=== PATIENT | male | born 1975 | race Hispanic/Latino ===

== ENCOUNTER 2020-05-18 14:13 | Emergency (ER) | payer OTHER, SELFPAY ==
[2020-05-18 14:32] VITALS: O2SAT 98
[2020-05-18] MEDS ORDERED: SODIUM CHLORIDE 0.9% 1000ML 1,000 ML IVS ONE (14:33)
[2020-05-18] MEDS ORDERED: ONDANSETRON INJ 4 MG/2 ML VIAL IV ONE (14:33)
[2020-05-18] MEDS ORDERED: ACETAMINOPHEN 325 MG TAB PO ONE (14:34)
--- NOTE | 2020-05-18 14:38 | ED.PDOC ---
History of Present Illness - General Chief Complaint: General Stated Complaint: N/V, cough, fever, body aches Time Seen by Provider: 05/18/20 14:32 Additional Information: Patient is a 44-year-old male who presents to the ED with chief complaint of not feeling well. Patient complains of 5 days of muscle aches, generalized weakness, frequent dry cough, nausea, occasional shortness of breath, subjective fever, muscle aches and fatigue. Patient denies chest pain or vomiting. Patient is a non-smoker and indicates he does not have a history of any lung disease. He has never had a heart attack and does not have CAD but has been told he has had a fast heart rate in the past patient has no other complaints today. - History of Present Illness Allergies/Adverse Reactions: Allergies NO KNOWN ALLERGY Allergy (Verified 05/18/20 14:31) Home Medications: Ambulatory Orders Acetaminophen [Tylenol] 650 mg PO Q6H #50 tab 05/18/20 Albuterol Inhaler [Ventolin Hfa Inhaler] 2 puff INH Q4H PRN #1 inh 05/18/20 Review of Systems - Review of Systems Constitutional: States: fever, malaise, weakness EENTM: States: no symptoms reported Respiratory: States: cough, short of breath Cardiology: States: no symptoms reported. Denies: chest pain, palpitations Gastrointestinal/Abdominal: States: nausea. Denies: abdominal pain, vomiting Genitourinary: States: no symptoms reported. Denies: dysuria Musculoskeletal: States: muscle pain Skin: States: no symptoms reported. Denies: rash Neurological: States: no symptoms reported All other Systems: Reviewed and Negative Past Medical History (General) - Patient Medical History Hx Seizures: No Hx Stroke: No Hx Dementia: No Hx Asthma: No Hx of COPD: No Hx Cardiac Disorders: Yes - SVT Hx Congestive Heart Failure: No Hx Pacemaker: No Hx Hypertension: Yes Hx Thyroid Disease: No Hx Diabetes: No Hx Gastroesophageal Reflux: No Hx Renal Disease: No Hx Cancer: No Hx of HIV: No Hx Hepatitis C: No Hx MRSA: No Surgical History: no surgical history - Vaccination History Hx Tetanus, Diphtheria Vaccination: No Hx Influenza Vaccination: No Hx Pneumococcal Vaccination: No - Social History Hx Tobacco Use: Yes Hx Chewing Tobacco Use: No Hx Alcohol Use: Yes Hx Substance Use: No Hx Substance Use Treatment: No Hx Depression: No Hx Physical Abuse: No Hx Emotional Abuse: No Hx Suspected Abuse: No - Female History Patient is a Female of Child Bearing Age (10 -59 yrs old): No Patient : No Family Medical History - Family History Mother Family History: Unknown Living Status: Hx Family Cancer: Yes - unknown type Physical Exam - Physical Exam General Appearance: Alert, Comfortable, No apparent distress, Well Developed, Well Nourished ENT Exam: normal ENT inspection Neck: supple, normal inspection Respiratory: chest non-tender, lungs clear, normal breath sounds, no respiratory distress, no accessory muscle use, other - Occasional dry cough Cardiovascular/Chest: normal peripheral pulses, regular rate, rhythm, no edema, no gallop, no JVD Gastrointestinal/Abdominal: normal bowel sounds, non tender, soft, no organomegaly, no pulsatile mass Extremity: normal range of motion, non-tender, normal inspection, no pedal edema 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 His work-up today is unremarkable including his D-dimer and his chest x-ray is clear. Patient is Covid positive but his oxygen saturation levels are normal and he should do well recovering at home. Will DC with albuterol and Tylenol and patient to rest and follow-up with his PCP. I discussed with him quarantining for 14 days along with his who works at a prison. Vital signs stable, patient is NAD and looks clinically well and I believe is safe for discharge with outpatient follow-up. Follow-up instructions, discharge instructions and return to ED precautions discussed with patient. Patient voices understanding and willingness to comply with instructions. All laboratory and/or radiographic results have been discussed with the patient, and all questions answered. Patient is happy with plan. Departure - Departure Clinical Impression: COVID-19 Time of Disposition: 15:51 Disposition: Discharge to Home or Self Care Condition: Good Departure Forms: ED Discharge - Pt. Copy, Patient Portal Self Enrollment Instructions: Coronavirus Disease 2019 (COVID-19) (DC) Referrals: RONY RODRIGUEZ MD [Active Staff] - 1 Week Prescriptions: Acetaminophen [Tylenol] 650 mg PO Q6H #50 tab Albuterol Inhaler [Ventolin Hfa Inhaler] 2 puff INH Q4H PRN #1 inh PRN Reason: Shortness Of Breath/Wheezing Home Medications: Ambulatory Orders Acetaminophen [Tylenol] 650 mg PO Q6H #50 tab 05/18/20 Albuterol Inhaler [Ventolin Hfa Inhaler] 2 puff INH Q4H PRN #1 inh 05/18/20
--- NOTE | 2020-05-18 14:48 | RAD ---
EXAM: X-RAY, Chest (1 View) HISTORY: cough. COMPARISON: Chest x-ray from 07/31/2014. TECHNIQUE: AP view of the chest. FINDINGS: Lungs: The lungs are clear. Pleural space: No pneumothorax or pleural effusion is present. Heart: The heart is normal in size. Bones: No acute bone abnormality. IMPRESSION: No acute cardiopulmonary finding. Electronically signed by: Moe Kapadia MD 05/18/2020 2:46 PM [facility]
[2020-05-18 16:21] VITALS: BP 156/98; TEMP 98.3
== END 2020-05-18 16:15 | disposition home or self-care (01) ==
LOC: ER 14:13
DX: U07.1 COVID-19 (principal); I10 Essential (primary) hypertension; Z87.891 Personal history of nicotine dependence
CPT/HCPCS: 36415; 71045; 80053; 83605; 84484; 85025; 85379; 87040; 87635; 93005; J2405; J7030

== ENCOUNTER 2020-05-25 08:30 | Inpatient (IN) | payer OTHER, SELFPAY ==
--- NOTE | 2020-05-25 08:39 | ED.PDOC ---
History of Present Illness - General Time Seen by Provider: 05/25/20 08:36 Source: patient - History of Present Illness Initial Comments: 44-year-old male with PMH of hypertension, history of SVTs, previous smoker who presents with chief complaint of fevers and cough. Patient reports he has been sick now for about 10 days, was seen in the ED 1 week ago and diagnosed with COVID-19. He was discharged home at that time as he had normal oxygen saturatio n levels. Reports his symptoms worsened in the past few days. States T-max 103 Fahrenheit at home. Reports cough is frequent and severe and productive for colored sputum. Cough and dyspnea are worsened with activity/exertion. He has been trying Robitussin and albuterol breathing treatments at home with little relief. Additionally reports constant 5/10 severity pressure in the left center of his chest without radiation, much worse with coughing and palpation. Denies any history of ACS/CAD. Also reports nausea with intermittent vomiting as well as intermittent light green-colored diarrhea, occurring approximately twice per day. Reports also headache, body aches, decreased appetite, dark-colored urine. Reports he has a prior smoker for 30 years, quit 2 years ago. Allergies/Adverse Reactions: Allergies NO KNOWN ALLERGY Allergy (Verified 05/25/20 08:59) Home Medications: Ambulatory Orders Acetaminophen [Tylenol] 650 mg PO Q6H #50 tab 05/18/20 Albuterol Inhaler [Ventolin Hfa Inhaler] 2 puff INH Q4H PRN #1 inh 05/18/20 Promethazine Tab [Phenergan Tablet] 25 mg PO Q6H PRN #12 tab 05/18/20 Review of Systems - Review of Systems Review of Systems: 05/25/20 09:00 as per HPI All other Systems: Reviewed and Negative Past Medical History (General) - Patient Medical History Hx Seizures: No Hx Stroke: No Hx Dementia: No Hx Asthma: No Hx of COPD: No Hx Cardiac Disorders: Yes - SVT Hx Congestive Heart Failure: No Hx Pacemaker: No Hx Hypertension: Yes Hx Thyroid Disease: No Hx Diabetes: No Hx Gastroesophageal Reflux: No Hx Renal Disease: No Hx Cancer: No Hx of HIV: No Hx Hepatitis C: No Hx MRSA: No - Vaccination History Hx Tetanus, Diphtheria Vaccination: No Hx Influenza Vaccination: No Hx Pneumococcal Vaccination: No - Social History Hx Tobacco Use: Yes Hx Chewing Tobacco Use: No Hx Alcohol Use: Yes Hx Substance Use: No Hx Substance Use Treatment: No Hx Depression: No Hx Physical Abuse: No Hx Emotional Abuse: No Hx Suspected Abuse: No - Female History Patient : No Family Medical History - Family History Mother Family History: Unknown Living Status: Hx Family Cancer: Yes - unknown type Physical Exam - Physical Exam General Appearance: Alert, No apparent distress, Ill Appearing Eye Exam: bilateral normal Ears, Nose, Throat: hearing grossly normal, normal ENT inspection, normal pharynx Neck: non-tender, full range of motion, supple, normal inspection Respiratory: lungs clear, other - marked ttp to left-center chest wall, tachypnea, slight accessory muscle use, speaking in short sentences, moving air well throughout w/o wheezing/rales/rhonchi, frequent hacking cough Cardiovascular/Chest: normal peripheral pulses, regular rate, rhythm, no edema, no gallop, no JVD, no murmur Peripheral Pulses: radial,right: 2+, radial,left: 2+ Gastrointestinal/Abdominal: non tender, soft, no organomegaly Back Exam: normal inspection, no CVA tenderness, no vertebral tenderness Extremity: normal range of motion, non-tender, normal inspection, no pedal edema, no calf tenderness, normal capillary refill 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 Consider also other viral etiologies, bacterial PNA, ACS, PE, CHF, COPD, gastroenteritis, metabolic derangement, other -stat COVID-19 panel, [address] PIV, IV fluids, Decadron 6 mg IV, trial of Duonebs, codeine-guaifenesin cough syrup for severe hacking cough, anticipate admission 05/25/20 12:24 -Patient reexamined several times during ED visit. Currently he reports feeling slightly better with ED treatment. States his cough is much better with the codeine cough syrup. Breath sounds are slightly improved throughout with DuoNeb's treatment. His SPO2 is improved to 95% on 5 L via nasal cannula oxygen at the moment. Labs revealed D-dimer elevation so CTA chest was obtained which showed no evidence of PE but did reveal diffuse bilateral groundglass opacities consistent with COVID-19 pneumonia. Otherwise labs are consistent with COVID-19 infection. CRP is elevated to 34. WBC is 10,000 with slight left shift and no bandemia. -Discussed all the findings with the patient and his as well as need for admission for further care. They are in agreement. I discussed patient with Aleta Sawant who accepts the patient to her service. The patient was begun on Decadron 6 mg IV in the ED. Further treatment via hospitalist. Boaz Meade MD Billing #[id number] 05/25/20 08:38 EKG Assessment ONCE Oxygen Delivery Assessment: QSHIFT 05/25/20 08:45 EKG STAT Oxygen STAT Pulse Ox, Continuous Monitoring STAT 05/26/20 08:45 Oxygen STAT Pulse Ox, Continuous Monitoring STAT 05/27/20 08:45 Pulse Ox, Continuous Monitoring STAT Laboratory Results - last 24 hr 05/25/20 05/25/20 05/25/20 08:37 08:51 08:51 WBC 10.9 H RBC 4.67 L Hgb 13.4 L Hct 38.9 L MCV 83.4 MCH 28.6 MCHC 34.3 RDW 13.2 Plt Count 243 MPV 8.5 Absolute Neuts (auto) 8.70 H Absolute Lymphs (auto) 1.10 Absolute Monos (auto) 1.20 H Absolute Eos (auto) 0.00 Absolute Basos (auto) 0.00 Neutrophils % 79.3 H Lymphocytes % 9.8 L Monocytes % 10.7 H Eosinophils % 0.0 L Basophils % 0.2 PTT (SP) 29.1 D-Dimer, Quantitative 3650.0 H* Sodium Potassium Chloride Carbon Dioxide Anion Gap BUN Creatinine BUN/Creatinine Ratio Random Glucose Serum Osmolality Calcium Magnesium Total Bilirubin Direct Bilirubin Indirect Bilirubin AST ALT Alkaline Phosphatase LD Total Creatine Kinase Troponin I < 0.02 C-Reactive Protein B-Natriuretic Peptide Serum Total Protein Albumin Globulin Albumin/Globulin Ratio 05/25/20 05/25/20 08:51 10:11 WBC RBC Hgb Hct MCV MCH MCHC RDW Plt Count MPV Absolute Neuts (auto) Absolute Lymphs (auto) Absolute Monos (auto) Absolute Eos (auto) Absolute Basos (auto) Neutrophils % Lymphocytes % Monocytes % Eosinophils % Basophils % PTT (SP) D-Dimer, Quantitative Sodium 138 Potassium 4.0 Chloride 101 Carbon Dioxide 23 Anion Gap 18.0 BUN 16 Creatinine 0.95 BUN/Creatinine Ratio 16.8 Random Glucose 115 H Serum Osmolality 277.8 Calcium 8.3 L Magnesium 1.7 L Total Bilirubin 1.6 H 1.2 H D Direct Bilirubin 0.4 H Indirect Bilirubin 0.8 AST 35 ALT 54 Alkaline Phosphatase 99 LD Total 344 H Creatine Kinase 73 Troponin I C-Reactive Protein 34.1 H* B-Natriuretic Peptide 36.7 Serum Total Protein 8.6 H Albumin 2.9 L Globulin 5.7 H Albumin/Globulin Ratio 0.5 L - EKG/XRAY/CT EKG: Sinus, Tachy - HR 100, no ST elevs or q waves noted, axis normal, intervals normal, compared to 05/18/2020 EKG appears unchanged XRAY: chest - diffuse BL peripheral and R perihiral hazy/patchy infiltrates c/w COVID-19 per my read Departure - Departure Clinical Impression: COVID-19, Hypoxia Time of Disposition: 12:24 Disposition: Admit Patient Condition: Fair Diet: resume usual diet Home Medications: Ambulatory Orders Acetaminophen [Tylenol] 650 mg PO Q6H #50 tab 05/18/20 Albuterol Inhaler [Ventolin Hfa Inhaler] 2 puff INH Q4H PRN #1 inh 05/18/20 Promethazine Tab [Phenergan Tablet] 25 mg PO Q6H PRN #12 tab 05/18/20 Decision To Admit - Decistion To Admit Decision to Admit Reason: Admit from ER Decision to Admit Date: 05/25/20 Decision to Admit Time: 12:24
[2020-05-25] MEDS ORDERED: IPRATROPIUM/ALBUTEROL 3 ML VIAL NEB ONE (08:53)
[2020-05-25] MEDS ORDERED: DEXAMETHASONE INJ 4 MG/ML VIAL IV ONE (08:53)
[2020-05-25] MEDS ORDERED: guaiFENesin W/CODEINE LIQ 10 ML UD PO ONE (08:54)
[2020-05-25] MEDS ORDERED: SODIUM CHLORIDE 0.9% 500ML 500 ML IVS ONE (09:00)
[2020-05-25] MEDS ORDERED: ONDANSETRON INJ 4 MG/2 ML VIAL IV ONE (09:09)
--- NOTE | 2020-05-25 09:19 | RAD ---
EXAM: XR Chest, 1 View CLINICAL HISTORY: cough, dyspnea, COVID+ TECHNIQUE: Frontal view of the chest. COMPARISON: 05/18/2020 FINDINGS: Lungs: Multifocal bilateral groundglass and airspace consolidates identified throughout both lungs relatively sparing the upper lobes and most notable in the periphery. Pleural space: No pneumothorax. No pleural effusion. Heart: Normal cardiac size and configuration. Mediastinum: No abnormality noted. Bones/joints: No osseous destruction or sclerosis noted. IMPRESSION: Pulmonary infiltrates with imaging features typical of Covid pneumonia. Electronically signed by: Sanna Pearson MD 05/25/2020 9:17 AM [facility]
--- NOTE | 2020-05-25 11:26 | CT ---
EXAM: CTA chest with contrast CLINICAL INDICATION: COVID-19 , shortness of breath COMPARISON: CT scan from 12/28/2008. TECHNIQUE: CTA of the chest was performed using contiguous axial 2 mm postcontrast sections through the chest including IV contrast with 3-D reconstructions. This exam was performed according to our departmental dose-optimization program, which includes automated exposure control, adjustment of the mA and/or kV according to patient size and/or use of iterative reconstruction technique. FINDINGS: There is no evidence of pulmonary embolism. There are no findings to suggest aortic dissection. There are no enlarged mediastinal or hilar lymph nodes. The visualized portions of the upper abdominal structures are unremarkable. There are widespread infiltrates and groundglass opacities throughout both lungs especially peripherally consistent with pneumonia. There is no pneumothorax or pleural effusion. IMPRESSION: 1. Extensive infiltrates and groundglass opacities throughout both lungs typical for COVID-19 pneumonia. 2. No evidence of pulmonary embolism. Electronically signed by: Adria Anthony MD 05/25/2020 11:25 AM [employer]ALITY IMPROVEMENT COORDINATOR
--- NOTE | 2020-05-25 12:55 | HP ---
SUPERVISING PHYSICIAN: Lavon Bey MD CHIEF COMPLAINT: Shortness of breath. HISTORY OF PRESENT ILLNESS: This is a 44-year-old male patient who presented to the Emergency Room for complaints of shortness of breath with fever and cough. He had been sick for about 7 to 10 days. He was actually seen in the Emergency Room about a week ago and diagnosed with COVID. He had been discharged to home at that time. His O2 saturation at that time was normal. Over the last week or so, his symptoms worsened. He has had temperature up to 103. He has also had cough that has been productive. His shortness of breath has worsened and is worse with activity and exertion. He quit smoking about 2 years ago and about 10 years ago, used meth for some time, but he has not used any illicit drugs since that time. His initial vital signs showed a temperature of 98.7, heart rate 117, blood pressure 133/84, respiratory rate 24, O2 saturation 75%. After oxygen was placed on the patient, his O2 saturation went up to 90% with 4 liters. Lab studies were done. WBCs were 10,900, hemoglobin 13.4, hematocrit 38.9. He had a left shift on differential. D-dimer was elevated 3,650. Electrolytes were within normal limits with the exception of calcium slightly low at 8.3, magnesium low at 1.7. Bilirubin 1.6, LD 344, CRP 34.1. Followup bilirubin was 1.2 with direct bilirubin of 0.4, indirect bilirubin of 0.8. Chest x-ray showed pulmonary infiltrates with imaging features typical of COVID pneumonia. CT of the chest showed 1) Extensive infiltrates and ground glass opacities throughout both lung conteh, typical of COVID-19 pneumonia. 2) No evidence of pulmonary embolism. He was admitted to the hospital in stable condition. PAST MEDICAL HISTORY: 1. Supraventricular tachycardia. 2. Previous tobacco abuse. He quit approximately 2 years ago. 3. Hypertension, presently on no medications. PAST SURGICAL HISTORY: None. OUTPATIENT MEDICATIONS: None. ALLERGIES: NO KNOWN DRUG ALLERGIES. SOCIAL HISTORY: He lives in [place]. He is . He works at [employer]. He has a previous history of cigarette smoking although he quit about 2 years ago. He denies any ETOH use. He did use illicit drugs, but quit about 10 years ago. His drug of choice at that time was meth. REVIEW OF SYSTEMS: Negative except as per history of present illness. PHYSICAL EXAMINATION: VITAL SIGNS: Temperature 97.4, heart rate 78, blood pressure 131/73, respiratory rate 18, O2 saturation 89% on high flow nasal cannula. GENERAL: This is a 44-year-old male patient who is sitting up in his hospital bed. He is in moderate respiratory distress. HEENT: Normocephalic, atraumatic. Pupils are equal and reactive. Oropharynx is clear. NECK: Supple with full range of motion. RESPIRATORY: Scattered rhonchi throughout with a few expiratory wheezes. He is tachypneic at rest. He can only speak in 2 to 3 word phrases. CARDIOVASCULAR: Regular rate and rhythm. GASTROINTESTINAL: Abdomen is soft, nondistended, nontender. Bowel sounds are positive. EXTREMITIES: No cyanosis, clubbing or edema. NEUROLOGIC: Awake, alert and oriented times three. Cranial nerves II-XII are grossly intact as tested. LABORATORY: Labs and films are as per history of present illness. IMPRESSION: 1. Sepsis related to COVID-19 pneumonitis with concerns for developing pneumonia. His admitting heart rate was 117, respiratory rate 24, O2 saturation 75%, and WBCs were 10,900. 2. History of supraventricular tachycardia. 3. History of tobacco abuse, quit smoking cigarettes 2 years ago. 4. Remote history of illicit drug use, mainly methamphetamines. PLAN: The patient has been admitted to the hospital. He will be placed on the COVID-19 guidelines including medications and testing. He will have aggressive pulmonary hygiene including albuterol breathing treatments both p.r.n. and scheduled. I have ordered lab and x-rays for in the morning. We will follow and treat as needed. [facility][id number] [facility]
[2020-05-25] MEDS ORDERED: SODIUM CHLORIDE 0.9% (FLUSH) 10 ML SYG IV PRN (16:02)
[2020-05-25] MEDS ORDERED: ONDANSETRON INJ 4 MG/2 ML VIAL IV PRN (16:02)
[2020-05-25] MEDS ORDERED: ALBUTEROL INHALER 64 PUFF/8GM INH ONE (16:06)
[2020-05-25] MEDS ORDERED: ALBUTEROL INHALER 64 PUFF/8GM INH PRN (16:07)
[2020-05-25] MEDS ORDERED: MAGNESIUM SULFATE PREMIX 2GM 2 GM in PREMIX BAG 1 BAG IVPB ONE (16:34)
[2020-05-25] MEDS ORDERED: AZITHROMYCIN IV 500 MG VIAL IVPB ONE (16:35)
[2020-05-25] MEDS ORDERED: cefTRIAXone SODIUM 1 GM VIAL ONE (16:36)
[2020-05-25] MEDS ORDERED: SODIUM CHL 0.9% 50ML MIN-BAG+ 50 ML IVPB ONE (16:36)
[2020-05-25] MEDS ORDERED: SODIUM CHLORIDE 0.9% 250ML 250 ML ONE (16:36)
[2020-05-25] MEDS: cefTRIAXone SODIUM 1 GM in SODIUM CHL 0.9% 50ML MIN-BAG+ 50 ML IVPB SCH (16:54)
[2020-05-25] MEDS: guaiFENesin W/CODEINE LIQ 10 ML UD PO PRN ×2 (16:56→21:30)
[2020-05-25] MEDS: IV SET AND CAP CHANGE INJ INJ SCH (17:07)
[2020-05-25] MEDS ORDERED: REMDESIVIR 200 MG in SODIUM CHLORIDE 0.9% 250ML 250 ML IVPB ONE ×2 (17:46→20:00)
[2020-05-25] MEDS ORDERED: AZITHROMYCIN IV 500 MG in SODIUM CHLORIDE 0.9% 250ML 250 ML IVPB SCH (18:00)
[2020-05-25] MEDS ORDERED: MAGNESIUM SULFATE PREMIX 2GM 50 ML IVPB ONE (19:02)
[2020-05-25] MEDS ORDERED: ALBUTEROL SULFATE 2.5 MG/3 ML VIAL NEB ONE (19:56)
[2020-05-25] MEDS: ALBUTEROL INHALER 64 PUFF/8GM INH SCH (20:15)
[2020-05-25] MEDS: AZITHROMYCIN IV 500 MG in SODIUM CHLORIDE 0.9% 250ML 250 ML IVPB SCH (20:30)
[2020-05-25] MEDS: guaiFENesin ER TAB 600 MG TAB PO SCH (21:30)
[2020-05-25] MEDS: BIFIDOBACTERIUM INFANTIS 4 MG CAP PO SCH (21:30)
[2020-05-25] MEDS: SODIUM CHLORIDE 0.9% (FLUSH) 10 ML SYG IV SCH (21:30)
[2020-05-25] MEDS: ENOXAPARIN SODIUM 40 MG/0.4 ML SYG SUBCU SCH (21:30)
[2020-05-26] MEDS: guaiFENesin W/CODEINE LIQ 10 ML UD PO PRN ×3 (04:56→17:48)
[2020-05-26] MEDS ORDERED: PANTOPRAZOLE SODIUM IV 40 MG VIAL IV SCH (06:30)
[2020-05-26] MEDS: ALBUTEROL INHALER 64 PUFF/8GM INH SCH ×4 (08:00→20:49)
[2020-05-26] MEDS ORDERED: REMDESIVIR IV 100 MG VIAL ONE (08:15)
[2020-05-26] MEDS ORDERED: SODIUM CHLORIDE 0.9% 250ML 250 ML ONE (08:15)
[2020-05-26] MEDS ORDERED: guaiFENesin W/CODEINE LIQ 10 ML UD PO ONE (09:04)
[2020-05-26] MEDS: guaiFENesin ER TAB 600 MG TAB PO SCH ×2 (09:14→20:28)
[2020-05-26] MEDS: BIFIDOBACTERIUM INFANTIS 4 MG CAP PO SCH ×2 (09:14→20:28)
[2020-05-26] MEDS: REMDESIVIR 100 MG in SODIUM CHLORIDE 0.9% 250ML 250 ML IVPB SCH (09:14)
[2020-05-26] MEDS: DEXAMETHASONE INJ 10 MG/ML VIAL IV SCH (09:15)
[2020-05-26] MEDS: SODIUM CHLORIDE 0.9% (FLUSH) 10 ML SYG IV SCH ×2 (09:15→20:28)
--- NOTE | 2020-05-26 13:58 | PN ---
SUPERVISING PHYSICIAN: Alf Terry MD DATE: 05/26/20 SUBJECTIVE: The patient states he is breathing fairly well, but he is requiring NIV at the moment. He is quite tachypneic upon my arrival into the room and on 100% oxygen on the BiPAP. I discussed with him intubation and he agreed that he understood that may be necessary, however, at this point I have turned down his oxygen to 80% and he is tolerating it fairly well so far. He denies any nausea or vomiting. OBJECTIVE: VITAL SIGNS: Blood pressure 133/86, heart rate 70, respiratory rate 24, temperature 96.9, oxygen saturation 99% on noninvasive ventilation at 80%. GENERAL: Mr. Pimentel is a 44-year-old male patient who is critically ill on noninvasive ventilation. NEUROLOGIC: The patient is alert. LUNGS: Clear to auscultation bilaterally, but diminished. CARDIOVASCULAR: Regular rate and rhythm. Normal S1, S2. ABDOMEN: Soft. Positive bowel sounds. GENITOURINARY: Deferred. EXTREMITIES: Lower extremities with no edema. Pulses 2+. Capillary refill is less than 2 seconds. LABORATORY: White count 17.2, hemoglobin 12.5, hematocrit 37.3, platelet count 284. D-dimer 3,080 which is an improvement over the D-dimer yesterday which was 3650. Chemistry today is pretty much unremarkable. There has been an improvement in the CRP to 29.0 from 34.1. ASSESSMENT: 1. Acute hypoxemic respiratory failure. 2. COVID pneumonitis. 3. History of smoking, but quit 2 years ago. PLAN: We will continue noninvasive ventilation and wean FiO2 as tolerated. Once again, I did discuss intubation with him and he is still quite a high risk. If his oxygen demands go up and he becomes tachypneic despite our best efforts, we will intubate and transfer him out. We will continue the Remdesivir, steroids and empiric antibiotics as well as bronchodilators and pulmonary toileting. Critical care time spent in evaluation and management of the patient, coordination of care with respiratory and nursing staff, chart review, order caller as well as documentation was 35 minutes. #[id number] [facility]
[2020-05-26] MEDS: cefTRIAXone SODIUM 1 GM in SODIUM CHL 0.9% 50ML MIN-BAG+ 50 ML IVPB SCH (17:00)
[2020-05-26] MEDS: AZITHROMYCIN IV 500 MG in SODIUM CHLORIDE 0.9% 250ML 250 ML IVPB SCH (20:27)
[2020-05-26] MEDS: ENOXAPARIN SODIUM 40 MG/0.4 ML SYG SUBCU SCH (20:28)
[2020-05-27] MEDS: guaiFENesin W/CODEINE LIQ 10 ML UD PO PRN ×3 (02:17→20:23)
[2020-05-27] MEDS: ACETAMINOPHEN 325 MG TAB PO PRN ×2 (03:11→12:45)
[2020-05-27] MEDS: ALPRAZolam 0.5 MG TAB PO PRN ×3 (03:15→20:23)
[2020-05-27] MEDS ORDERED: PANTOPRAZOLE SODIUM TAB 40 MG PO ONE (05:10)
[2020-05-27] MEDS: PANTOPRAZOLE SODIUM TAB 40 MG PO SCH (06:14)
--- NOTE | 2020-05-27 07:15 | RAD ---
EXAM: Chest Radiography COMPARISON: Chest radiograph May 25, 2020 INDICATION: covid FINDINGS: A single AP view of the chest demonstrates an enlarged cardiomediastinal silhouette. No pneumothorax or significant pleural effusion. Stable diffuse bilateral subpleural predominant consolidations. Osseous structures are intact. IMPRESSION: Stable chest. Electronically signed by: Francis Tejada MD 05/27/2020 7:13 AM RESEARCH COMPUTING SPECIALIST
[2020-05-27] MEDS: ALBUTEROL INHALER 64 PUFF/8GM INH SCH ×4 (08:52→21:00)
[2020-05-27] MEDS: REMDESIVIR 100 MG in SODIUM CHLORIDE 0.9% 250ML 250 ML IVPB SCH (09:21)
[2020-05-27] MEDS: BIFIDOBACTERIUM INFANTIS 4 MG CAP PO SCH ×2 (09:22→20:23)
[2020-05-27] MEDS: DEXAMETHASONE INJ 10 MG/ML VIAL IV SCH (09:22)
[2020-05-27] MEDS: guaiFENesin ER TAB 600 MG TAB PO SCH ×2 (09:22→20:23)
[2020-05-27] MEDS: SODIUM CHLORIDE 0.9% (FLUSH) 10 ML SYG IV SCH ×2 (09:23→20:23)
--- NOTE | 2020-05-27 15:08 | PN ---
SUPERVISING PHYSICIAN: Alf Terry MD DATE: 05/27/20 SUBJECTIVE: The patient states he does not feel a whole lot different than he did yesterday. He is still having intermittent shortness of breath. He is still requiring the BiPAP. He says he does not feel any worse and does not feel any better. OBJECTIVE: VITAL SIGNS: Blood pressure 134/84, heart rate 68, respiratory rate 25 to 30 while I am at the bedside, temperature 96.0, oxygen saturation around 96%. GENERAL: Mr. Pimentel is a 44-year-old male patient who is in mild to moderate respiratory distress. NEUROLOGIC: The patient is alert. LUNGS: Coarse bilaterally. CARDIOVASCULAR: Regular rate and rhythm. Normal S1, S2. ABDOMEN: Soft. Positive bowel sounds. GENITOURINARY: Deferred. EXTREMITIES: Lower extremities with no edema. LABORATORY: White count elevated at 21.8, 3% bands. D-dimer greater than 5,000. CRP a little bit better at 15.5. RADIOLOGY: Chest x-ray does not show any significant change from yesterday. ASSESSMENT: 1. Acute hypoxemic respiratory failure. 2. COVID pneumonitis. 3. History of smoking. PLAN: We will continue noninvasive ventilation and wean FiO2 as tolerated. I did speak with him regarding intubation once again and told him if his respiratory rate climbs and his oxygenation status worsens, he will need to be intubated. He verbalized understanding, but we are not at that point right now. He does have elevated white count with bands, so I am going to escalate his antibiotic therapy. Additionally, his D-dimer has gone back up, so I am going to put him on full anticoagulation at this point. We will continue Remdesivir, steroids, bronchodilators and pulmonary toileting. #[id number] [facility]
[2020-05-27] MEDS ORDERED: MEROPENEM 1 GM VIAL IVPB ONE (15:27)
[2020-05-27] MEDS ORDERED: SODIUM CHL 0.9% 50ML MIN-BAG+ 0 ML IVPB ONE (15:28)
[2020-05-27] MEDS: MEROPENEM 1 GM in SODIUM CHL 0.9% 50ML MIN-BAG+ 50 ML IVPB SCH ×2 (15:31→22:49)
[2020-05-27] MEDS: AZITHROMYCIN IV 500 MG in SODIUM CHLORIDE 0.9% 250ML 250 ML IVPB SCH (20:22)
[2020-05-27] MEDS: APIXABAN 5 MG TAB PO SCH (20:23)
[2020-05-27] MEDS: HYDROcodone 5MG/APAP 325MG 1 EA TAB PO PRN (20:42)
[2020-05-28] MEDS: HYDROcodone 5MG/APAP 325MG 1 EA TAB PO PRN ×2 (03:38→08:34)
[2020-05-28] MEDS: ALPRAZolam 0.5 MG TAB PO PRN ×5 (03:38→22:36)
[2020-05-28] MEDS: guaiFENesin W/CODEINE LIQ 10 ML UD PO PRN ×5 (03:38→22:36)
[2020-05-28] MEDS: PANTOPRAZOLE SODIUM TAB 40 MG PO SCH (06:04)
--- NOTE | 2020-05-28 07:14 | RAD ---
EXAM: XR Chest, 1 View CLINICAL HISTORY: The patient is 44 years old and is Male; covid, resp failure TECHNIQUE: Single upright portable view of the chest. COMPARISON: May 27, 2020. FINDINGS: Lungs: Bilateral pulmonary opacities again noted, not significantly changed. Pleural space: Unremarkable. No pneumothorax. Heart: The cardiac silhouette is enlarged versus artifact of AP technique. Cardiomediastinal silhouette is not significantly changed given the differences in technique. Mediastinum: See above. Bones/joints: The bones and joints are unchanged as visualized. Upper abdomen: No free air in the visualized upper abdomen. IMPRESSION: Bilateral pulmonary opacities again noted, not significantly changed. Electronically signed by: Azeb Mcmanus MD 05/28/2020 7:12 AM DIGITAL DIRECTOR
[2020-05-28] MEDS: MEROPENEM 1 GM in SODIUM CHL 0.9% 50ML MIN-BAG+ 50 ML IVPB SCH ×3 (07:30→23:06)
[2020-05-28] MEDS: DEXAMETHASONE INJ 10 MG/ML VIAL IV SCH (08:33)
[2020-05-28] MEDS: REMDESIVIR 100 MG in SODIUM CHLORIDE 0.9% 250ML 250 ML IVPB SCH (08:33)
[2020-05-28] MEDS: BIFIDOBACTERIUM INFANTIS 4 MG CAP PO SCH ×2 (08:33→20:34)
[2020-05-28] MEDS: guaiFENesin ER TAB 600 MG TAB PO SCH ×2 (08:33→20:34)
[2020-05-28] MEDS: SODIUM CHLORIDE 0.9% (FLUSH) 10 ML SYG IV SCH ×2 (08:34→20:35)
[2020-05-28] MEDS: APIXABAN 5 MG TAB PO SCH ×2 (08:34→20:34)
[2020-05-28] MEDS: ALBUTEROL INHALER 64 PUFF/8GM INH SCH ×4 (09:00→19:24)
[2020-05-28] MEDS: HYDROcodone 7.5MG/APAP 325MG 1 EA TAB PO PRN ×3 (12:51→22:36)
[2020-05-28] MEDS: IV SET AND CAP CHANGE INJ INJ SCH (16:46)
[2020-05-28] MEDS: IBUPROFEN 400 MG TAB PO PRN (16:54)
[2020-05-28] MEDS: AZITHROMYCIN IV 500 MG in SODIUM CHLORIDE 0.9% 250ML 250 ML IVPB SCH (20:35)
--- NOTE | 2020-05-28 20:39 | PN ---
SUPERVISING PHYSICIAN: Alf Terry M.D. DATE: 05/28/20 SUBJECTIVE: The patient is sitting up in bed. He is still on the BiPAP. It is reported that he has used the nonrebreather at rest. He still is very short of breath but denies chest pain, nausea or vomiting. OBJECTIVE: VITAL SIGNS: Temperature 96.7, heart rate 70, blood pressure 144/86, respiratory rate 20, O2 saturation 95% on BiPAP at 60%. RESPIRATORY: Diminished throughout. CARDIAC: Regular rate and rhythm. NEUROLOGIC: He is awake, alert and oriented times three. LABORATORY: WBCs are 18,900 with hemoglobin 13.4, hematocrit 40.6. He has a left shift on his differential. D-dimer 4,370. Sodium is slightly low at 131 with potassium 4.6, chloride 97, calcium 7.7, magnesium 2.1. ALT 73, C reactive protein 10.5. Chest x-ray shows bilateral pulmonary opacities again noted not significantly changed. All other labs and films have been reviewed via the EMR. ASSESSMENT: 1. Acute hypoxemic respiratory failure. 2. COVID pneumonitis. 3. History of smoking. PLAN: We will continue present supportive care, including noninvasive ventilation and wean FiO2 as tolerated. Will continue on the COVID guidelines, including Remdesivir, broad spectrum antibiotics, Decadron, Lovenox and aggressive pulmonary hygiene, including his bronchodilators. I have ordered routine lab and films for in the morning. Will monitor the patient and treat as needed. #[id number] [facility]TDD
[2020-05-29] MEDS: PANTOPRAZOLE SODIUM TAB 40 MG PO SCH (06:02)
--- NOTE | 2020-05-29 07:23 | RAD ---
PROCEDURE:XR CHEST 1 VIEW HISTORY:covid COMPARISON: There are 2020 FINDINGS: The heart appears unremarkable. There are stable patchy infiltrates. There are no new infiltrates. There is no evidence for effusion or pneumothorax. There are no acute bony or soft tissue abnormalities. IMPRESSION: No acute cardiopulmonary process. Electronically signed by: Omari Farr MD 05/29/2020 7:22 AM SHIATSU THERAPIST
[2020-05-29] MEDS: MEROPENEM 1 GM in SODIUM CHL 0.9% 50ML MIN-BAG+ 50 ML IVPB SCH ×3 (07:37→23:22)
[2020-05-29] MEDS: DEXAMETHASONE INJ 10 MG/ML VIAL IV SCH (08:27)
[2020-05-29] MEDS: REMDESIVIR 100 MG in SODIUM CHLORIDE 0.9% 250ML 250 ML IVPB SCH (08:27)
[2020-05-29] MEDS: IBUPROFEN 400 MG TAB PO PRN ×2 (08:27→20:30)
[2020-05-29] MEDS: SODIUM CHLORIDE 0.9% (FLUSH) 10 ML SYG IV SCH ×2 (08:28→20:31)
[2020-05-29] MEDS: APIXABAN 5 MG TAB PO SCH ×2 (08:28→20:16)
[2020-05-29] MEDS: guaiFENesin ER TAB 600 MG TAB PO SCH ×2 (08:28→20:16)
[2020-05-29] MEDS: BIFIDOBACTERIUM INFANTIS 4 MG CAP PO SCH ×2 (08:28→20:16)
[2020-05-29] MEDS: ALBUTEROL INHALER 64 PUFF/8GM INH SCH ×4 (08:47→21:08)
--- NOTE | 2020-05-29 13:39 | PN ---
SUPERVISING PHYSICIAN: Alf Terry M.D. DATE: 05/29/20 SUBJECTIVE: The patient is sitting up in his chair in his room. He has his BiPAP on. He does get short of breath with any exertion, but seems to be tolerating it without problem. He denies chest pain, nausea or vomiting. OBJECTIVE: VITAL SIGNS: Temperature 98.2, heart rate 66, blood pressure 128/71, O2 saturation 96% on BiPAP at 55%. RESPIRATORY: Diminished throughout. CARDIAC: Regular rate and rhythm. NEUROLOGIC: He is awake, alert and oriented times three. LABORATORY: WBCs 19,000, hemoglobin 13.1, hematocrit 39.6. He has a left shift on differential. D-dimer is greater than 5,000. Blood gas from last night shows pCO2 43, pO2 93, bicarb 26.1, O2 saturation 94.9%, pH 7.38. Electrolytes show sodium 133, potassium 4.6, chloride 99, calcium 7.8, magnesium 2.5, BUN 17, creatinine 0.67. LD 332, creatinine kinase 19, C-reactive protein 15.1. RADIOLOGY: Chest x-ray shows no acute cardiopulmonary processes with no new infiltrates and stable patchy infiltrates. ASSESSMENT: 1. Acute hypoxemic respiratory failure. 2. COVID pneumonitis. 3. History of smoking. PLAN: We will continue present supportive care, including the COVID guidelines. We will continue with the medications of Remdesivir, Decadron, azithromycin and Rocephin. He will also continue on his Eliquis as he is fully anticoagulated. Routine COVID labs will be ordered for tomorrow. We will hold on a chest x-ray for now. We will try to wean him off his oxygen as tolerated. He will have aggressive pulmonary hygiene. We will monitor and treat as needed. #[id number] [facility]TDD
[2020-05-29] MEDS: HYDROcodone 7.5MG/APAP 325MG 1 EA TAB PO PRN ×2 (15:32→20:16)
[2020-05-29] MEDS: AZITHROMYCIN IV 500 MG in SODIUM CHLORIDE 0.9% 250ML 250 ML IVPB SCH (20:14)
[2020-05-29] MEDS: ALPRAZolam 0.5 MG TAB PO PRN (20:17)
[2020-05-30] MEDS: guaiFENesin W/CODEINE LIQ 10 ML UD PO PRN ×2 (03:45→15:50)
[2020-05-30] MEDS: PANTOPRAZOLE SODIUM TAB 40 MG PO SCH (06:09)
[2020-05-30] MEDS: IBUPROFEN 400 MG TAB PO PRN (08:28)
[2020-05-30] MEDS: guaiFENesin ER TAB 600 MG TAB PO SCH ×2 (08:28→20:27)
[2020-05-30] MEDS: ALPRAZolam 0.5 MG TAB PO PRN ×2 (08:28→20:27)
[2020-05-30] MEDS: APIXABAN 5 MG TAB PO SCH ×2 (08:28→20:27)
[2020-05-30] MEDS: DEXAMETHASONE INJ 10 MG/ML VIAL IV SCH (08:28)
[2020-05-30] MEDS: MEROPENEM 1 GM in SODIUM CHL 0.9% 50ML MIN-BAG+ 50 ML IVPB SCH ×3 (08:29→23:25)
[2020-05-30] MEDS: ALBUTEROL INHALER 64 PUFF/8GM INH SCH ×4 (08:35→20:30)
[2020-05-30] MEDS ORDERED: MAGNESIUM SULFATE PREMIX 2GM 2 GM in PREMIX BAG 1 BAG IVPB ONE (08:43)
[2020-05-30] MEDS: BIFIDOBACTERIUM INFANTIS 4 MG CAP PO SCH ×2 (09:35→20:28)
[2020-05-30] MEDS: SODIUM CHLORIDE 0.9% (FLUSH) 10 ML SYG IV SCH ×2 (09:35→20:28)
--- NOTE | 2020-05-30 14:44 | PN ---
SUPERVISING PHYSICIAN: Alf Terry M.D. DATE: 05/30/20 SUBJECTIVE: The patient is sitting up in his bed. He is now on high flow oxygen. He still gets quite short of breath with any exertion and he does get somewhat anxious at night when he has a difficult time breathing. Otherwise, no chest pain, nausea or vomiting. OBJECTIVE: VITAL SIGNS: Temperature 97.5, heart rate 72, blood pressure 131/78, respiratory rate 21, O2 saturation 94% on BiPAP at 40%. He does take breaks and is 94% on high flow nasal canula. RESPIRATORY: Diminished breath sounds throughout. He is tachypneic and has to speak in short phrases. CARDIAC: Regular rate and rhythm. NEUROLOGIC: He is awake, alert and oriented times three. LABORATORY: WBCs 19,300, hemoglobin 12.5, hematocrit 37.9. He has a left shift on differential. D-dimer continues at greater than 5,000. Sodium 133, potassium 4.4, chloride 102, BUN 19, creatinine 0.69, calcium 8.1, magnesium 1.7. ALT 76, LD 294, creatinine kinase 16, troponin less than 0.02, C-reactive protein 10. All other labs and films have been reviewed via the EMR. ASSESSMENT: 1. Acute hypoxemic respiratory failure. 2. COVID pneumonitis. 3. History of smoking. 4. Anxiety, most likely secondary to #1 and #2. PLAN: We will continue present supportive care, including the COVID protocol. His antibiotics will be continued as previously. His labs will be monitored closely. We will titrate his oxygen as he tolerates. I have given him some magnesium replacement. We will continue to monitor and treat as needed. [facility][id number] [facility]
[2020-05-30] MEDS: AZITHROMYCIN IV 500 MG in SODIUM CHLORIDE 0.9% 250ML 250 ML IVPB SCH (20:25)
[2020-05-30] MEDS: HYDROcodone 7.5MG/APAP 325MG 1 EA TAB PO PRN (20:27)
[2020-05-31] MEDS: IBUPROFEN 400 MG TAB PO PRN ×2 (01:57→19:27)
[2020-05-31] MEDS: PANTOPRAZOLE SODIUM TAB 40 MG PO SCH (06:13)
[2020-05-31] MEDS: MEROPENEM 1 GM in SODIUM CHL 0.9% 50ML MIN-BAG+ 50 ML IVPB SCH ×3 (07:41→23:23)
[2020-05-31] MEDS: DEXAMETHASONE INJ 10 MG/ML VIAL IV SCH (08:53)
[2020-05-31] MEDS: APIXABAN 5 MG TAB PO SCH ×2 (08:53→20:30)
[2020-05-31] MEDS: guaiFENesin ER TAB 600 MG TAB PO SCH ×2 (08:53→20:30)
[2020-05-31] MEDS: BIFIDOBACTERIUM INFANTIS 4 MG CAP PO SCH ×2 (08:54→20:30)
[2020-05-31] MEDS: SODIUM CHLORIDE 0.9% (FLUSH) 10 ML SYG IV SCH ×2 (08:54→20:30)
[2020-05-31] MEDS: ALBUTEROL INHALER 64 PUFF/8GM INH SCH ×4 (10:38→20:45)
--- NOTE | 2020-05-31 10:59 | RAD ---
TECHNIQUE: Chest,1 View Chest radiograph, AP view. HISTORY: MAIN covid COMPARISON: Chest x-ray May 29, 2020. FINDINGS: Lungs/Pleura: Patchy infiltrates and consolidations in both lungs appear more notable on the left. Overall appearance is unchanged compared to the prior. No pneumothorax. No blunting of costophrenic angles are evident to suggest effusions. Hypoaerated lungs accentuate the pulmonary markings and cardiac silhouette. Mediastinum, [place]: Aortic calcifications. Heart: Cardiac silhouette is stable compared to prior. Bones: No suspicious osseous lesions. Soft Tissues: Unremarkable. Other: None. IMPRESSION: * Stable exam. Electronically signed by: Jorge Guajardo 05/31/2020 10:57 AM [facility]
[2020-05-31] MEDS ORDERED: MORPHINE SULFATE INJ 10 MG/ML VIAL IV ONE (13:15)
[2020-05-31] MEDS: ALPRAZolam 0.5 MG TAB PO PRN ×2 (13:23→20:30)
[2020-05-31] MEDS: IV SET AND CAP CHANGE INJ INJ SCH (17:31)
[2020-05-31] MEDS: AZITHROMYCIN IV 500 MG in SODIUM CHLORIDE 0.9% 250ML 250 ML IVPB SCH (20:29)
[2020-05-31] MEDS: HYDROcodone 7.5MG/APAP 325MG 1 EA TAB PO PRN (20:30)
--- NOTE | 2020-05-31 21:39 | PN ---
SUPERVISING PHYSICIAN: Alf Terry M.D. DATE: 05/31/20 SUBJECTIVE: The patient seems to be doing okay on BiPAP. He has actually been able to come off on high flow but gets hypoxic fairly easily. He is quite anxious and requiring some management with Xanax and some morphine, but seems to be tolerating his BiPAP well. OBJECTIVE: VITAL SIGNS: Temperature 98, pulse 75, blood pressure 118/73, respirations 20. He is showing 95% on high flow nasal cannula and on BiPAP at 40%. He is showing 94%, that is with settings of 12/6 at current assessment. CHEST: Lung sounds are just diminished throughout. I do not hear any obvious rhonchi, wheezing or rales. HEART: Regular rate and rhythm. ABDOMEN: Obese but soft, non-tender. Positive bowel sounds. EXTREMITIES: Without edema. NEUROLOGIC: He is alert and oriented times three. LABORATORY: White count is holding fairly stable at 19,500, hemoglobin 12.7, hematocrit 38.5, platelet count 246,000. Differential does show a left shift, but no current bands. Coagulation studies show a persistent elevated D-dimer at greater than 5,000. Chemistries are showing sodium 132, potassium 4.8, BUN 19, creatinine 0.85, normal magnesium at 2.0. Liver functions are within normal limits except for a slightly elevated ALT at 74. Troponin is less than 0.02. MICROBIOLOGY: No new specimens. RADIOLOGY: Chest x-ray this morning per radiology interpretation just shows again patchy infiltrates and consolidations in both lungs that appear to be fairly stable. It is more prominent on the left than the right. ASSESSMENT: 1. COVID pneumonitis. 2. Acute hypoxic respiratory failure secondary to #1 with developing likely viral pneumonia. 3. History of tobacco abuse in a smoker. 4. Anxiety, likely due to #1. PLAN: Will continue current plan of care with COVID protocol. I discussed with respiratory therapist. Will increase his settings on his BiPAP to be 12/8 with increasing his EPAP to 8 versus 6 to see if we can to create some more airspace. Will continue to titrate his oxygen down, hopefully this will help improve some. Will replace magnesium as needed. He continues on DVT prophylaxis with Eliquis. He is on antibiotics, including Meropenem and azithromycin. He does remain on Decadron and Protonix. Will continue to try to titrate his oxygen needs down as he remains on 40% FiO2 at this point, but he has actually been tolerating some high flow nasal cannula. Hopefully this will continue and we can transition him off BiPAP for the next 1 to 2 days. Until then will continue to monitor and treat as needed. #[id number] [facility]
[2020-06-01] MEDS: PANTOPRAZOLE SODIUM TAB 40 MG PO SCH (06:02)
[2020-06-01] MEDS: ALBUTEROL INHALER 64 PUFF/8GM INH SCH ×4 (08:42→19:48)
[2020-06-01] MEDS: SODIUM CHLORIDE 0.9% (FLUSH) 10 ML SYG IV SCH ×2 (09:33→20:37)
[2020-06-01] MEDS: APIXABAN 5 MG TAB PO SCH ×2 (09:33→20:37)
[2020-06-01] MEDS: DEXAMETHASONE INJ 10 MG/ML VIAL IV SCH (09:33)
[2020-06-01] MEDS: guaiFENesin ER TAB 600 MG TAB PO SCH ×2 (09:33→20:36)
[2020-06-01] MEDS: MEROPENEM 1 GM in SODIUM CHL 0.9% 50ML MIN-BAG+ 50 ML IVPB SCH ×3 (09:33→22:58)
[2020-06-01] MEDS: BIFIDOBACTERIUM INFANTIS 4 MG CAP PO SCH ×2 (09:33→20:36)
[2020-06-01] MEDS: IBUPROFEN 400 MG TAB PO PRN ×2 (13:33→22:52)
[2020-06-01] MEDS: ALPRAZolam 0.5 MG TAB PO PRN ×2 (13:33→22:52)
--- NOTE | 2020-06-01 19:17 | PN ---
SUPERVISING PHYSICIAN: Alf Terry M.D. DATE: 06/01/20 SUBJECTIVE: The patient seems to be tolerating his new BiPAP settings of 12/8, although we are still on FiO2 at 40%. Of note is he is actually maintaining on high flow nasal cannula at 15 liters at 93% at times, but when he is resting he is back on BiPAP. OBJECTIVE: VITAL SIGNS: Temperature 97.9, pulse 80, blood pressure 135/72 showing 95% on high flow at 15 liters. He is maintaining on BiPAP 96 to 97% on 40% FiO2 with settings of 12/8. CHEST: Lung sounds are just diminished throughout. I do not hear any obvious rhonchi, wheezing or rales. HEART: Regular rate and rhythm. ABDOMEN: Obese but soft, non-tender. Positive bowel sounds. EXTREMITIES: Without edema. NEUROLOGIC: He is alert and oriented times three. LABORATORY STUDIES: White count again is elevated at 20,100, hemoglobin 13.5, hematocrit 41.0, platelet count 206,000. Differential shows a continued left shift but no bands. Coagulation studies again his D-dimer is greater than 5,000. Chemistries: Sodium is at 130, potassium is at 4.8, but his sodium corrects to 132 with a glucose of 206. Creatinine is at 0.7, BUN is normal at 15, calcium 8.3, magnesium 1.8. Liver functions are still showing elevation with AST of 32, ALT is up to 113, LDH is elevated at 123 with a total CK that is normal at 18. His LDH again is elevated. C reactive protein is 7.4 and that is from 15.1 on assessment 3 days previously. RADIOLOGY: No additional radiographic studies today. Will repeat chest x-ray tomorrow. ASSESSMENT: 1. COVID pneumonitis. 2. Acute hypoxic respiratory failure secondary to #1 with developing likely viral pneumonia. 3. History of tobacco abuse in a smoker. 4. Anxiety, likely due to #1. PLAN: Will continue with current treatment plan of care for COVID pneumonitis. He remains on noninvasive support ventilatory rodríguez with BiPAP with settings of 12/8, FiO2 is at 40. We will work to titrate that down to room air hopefully to a lower percentage. He remains on antibiotics with azithromycin and Meropenem. He is on Eliquis for coverage of the D-dimer that is elevated for anticoagulation. He is on Protonix. Will give him some Xanax and morphine as needed while he is on BiPAP if he needs for panic attacks, which I think he is having at times. Again hopefully will be able to titrate his FiO2 down and get him titrated down to high flow nasal cannula. Until then will continue to monitor and treat as needed. #[id number] [facility]
[2020-06-01] MEDS: AZITHROMYCIN IV 500 MG in SODIUM CHLORIDE 0.9% 250ML 250 ML IVPB SCH (20:37)
[2020-06-01] MEDS: guaiFENesin W/CODEINE LIQ 10 ML UD PO PRN (22:52)
[2020-06-02] MEDS: guaiFENesin W/CODEINE LIQ 10 ML UD PO PRN ×2 (05:07→23:09)
[2020-06-02] MEDS: IBUPROFEN 400 MG TAB PO PRN ×2 (05:07→23:00)
[2020-06-02] MEDS: PANTOPRAZOLE SODIUM TAB 40 MG PO SCH (05:48)
--- NOTE | 2020-06-02 06:17 | RAD ---
EXAM: Chest Radiography COMPARISON: Chest radiograph May 31, 2020 INDICATION: MAIN COVID PNA FINDINGS: A single AP view of the chest demonstrates an indistinct cardiomediastinal silhouette. No pneumothorax. Possible small left pleural effusion. Mild progression of diffuse bilateral consolidations. Osseous structures are intact. IMPRESSION: Mild progression of severe multifocal pneumonia. Electronically signed by: Francis Tejada MD 06/02/2020 6:15 AM COMMERCIAL INSTALLER
[2020-06-02] MEDS: MEROPENEM 1 GM in SODIUM CHL 0.9% 50ML MIN-BAG+ 50 ML IVPB SCH ×3 (07:55→23:02)
[2020-06-02] MEDS: APIXABAN 5 MG TAB PO SCH ×2 (07:59→21:33)
[2020-06-02] MEDS: BIFIDOBACTERIUM INFANTIS 4 MG CAP PO SCH ×2 (07:59→21:33)
[2020-06-02] MEDS: guaiFENesin ER TAB 600 MG TAB PO SCH ×2 (07:59→21:34)
[2020-06-02] MEDS: DEXAMETHASONE INJ 10 MG/ML VIAL IV SCH (07:59)
[2020-06-02] MEDS: SODIUM CHLORIDE 0.9% (FLUSH) 10 ML SYG IV SCH ×2 (08:01→21:34)
[2020-06-02] MEDS: ALBUTEROL INHALER 64 PUFF/8GM INH SCH ×4 (09:00→21:10)
[2020-06-02] MEDS: AZITHROMYCIN IV 500 MG in SODIUM CHLORIDE 0.9% 250ML 250 ML IVPB SCH (21:33)
--- NOTE | 2020-06-02 22:28 | PN ---
SUPERVISING PHYSICIAN: Abhilash Holguin M.D. DATE: 06/02/20 SUBJECTIVE: The patient has been able to stay off BiPAP for several hours on high flow. His tidal volumes seem to be improving. His respiratory effort is certainly less labored and his respiration rate certainly is decreased from the previous 24 hours. He has not complained of any chest pain. No nausea or vomiting. OBJECTIVE: VITAL SIGNS: He remains afebrile. Temperature 98.4, pulse 89, blood pressure 126/86, respirations are ranging between 14 and 22, on high flow nasal cannula is showing anywhere from 92 to 96% and that is on 15 liters on BiPAP. FiO2 of 40. He is maintaining around 94 to 96%. GENERAL: The patient looks to be resting much more comfortably. He is not as anxious as he has been. CHEST: Sounds are a little bit better in aeration compared to previous days, but still certainly diminished. I do not hear any obvious wheezing or rhonchi. HEART: Regular rate and rhythm. ABDOMEN: Obese but soft, non-tender. Positive bowel sounds. EXTREMITIES: Without edema. NEUROLOGIC: He is alert and oriented times three. LABORATORY: White count is remaining consistently elevated at 20,800, hemoglobin is stable at 13.2, hematocrit 31.6, platelet count 276,000. Differential continues to show a left shift with 2 bands today. Coagulation studies were not repeated today as it is persistently elevated. Chemistries are showing sodium 131, creatinine 0.71, potassium is normal at 4.9. Hemoglobin A1c was 6.1 and calcium is 8.6. C reactive protein is down to 5.0 today. RADIOLOGY: Repeat chest x-ray today per radiology interpretation shows mild progression of severe multifocal pneumonia. ASSESSMENT: 1. COVID pneumonitis with secondary pneumonia. 2. Persistent hypoxic respiratory failure requiring noninvasive ventilation support. 3. Chronic tobacco abuse in a smoker. 4. Anxiety, likely due to #1. PLAN: Will continue with current plan of care, aggressively treating with antibiotics with Meropenem and he should be finished on the azithromycin course. He remains on Decadron as well as Eliquis. Will continue to work with him on aggressive pulmonary hygiene and titrate his FiO2 down as possible, and transition him to high flow nasal cannula. Will continue to follow his labs and anticipate hopefully being able to transition to outpatient management hopefully within the next 48 hours or so. Again, he has been slow to progress to nasal cannula. Until then will continue to monitor and treat as needed. #[id number] [facility]
[2020-06-02] MEDS: ALPRAZolam 0.5 MG TAB PO PRN (23:00)
[2020-06-02] MEDS: LIDOCAINE VISCOUS 2% 15 ML, diphenhydrAMINE HCL 37.5 MG, NYSTATIN SUSPENSION 15 ML, ALU... PO PRN ×4 (23:04)
[2020-06-03] MEDS: PANTOPRAZOLE SODIUM TAB 40 MG PO SCH (06:19)
--- NOTE | 2020-06-03 07:15 | RAD ---
EXAM: Chest,1 View HISTORY: COVID PNA COMPARISON: Chest 1 View AP 06/02/2020 TECHNIQUE: Chest 1 View AP FINDINGS: Moderate decreased inspiration (decreased lung volumes) makes evaluation more difficult and may accentuate heart size and pulmonary vascularity. Trachea midline. Cardiac silhouette partially obscured by surrounding opacities. No significant change in marked hazy and dense diffuse bilateral lung opacities. No significant pleural effusion or pneumothorax. IMPRESSION: No significant change in marked hazy and dense diffuse bilateral (left greater than right) lung opacities. Electronically signed by: Omari Watson MD 06/03/2020 7:13 AM [facility]
[2020-06-03] MEDS: ALBUTEROL INHALER 64 PUFF/8GM INH SCH ×4 (08:20→21:54)
[2020-06-03] MEDS: MEROPENEM 1 GM in SODIUM CHL 0.9% 50ML MIN-BAG+ 50 ML IVPB SCH ×3 (09:00→23:10)
[2020-06-03] MEDS: APIXABAN 5 MG TAB PO SCH ×2 (09:01→21:12)
[2020-06-03] MEDS: SODIUM CHLORIDE 0.9% (FLUSH) 10 ML SYG IV SCH ×2 (09:01→21:12)
[2020-06-03] MEDS: guaiFENesin ER TAB 600 MG TAB PO SCH ×2 (09:01→21:12)
[2020-06-03] MEDS: BIFIDOBACTERIUM INFANTIS 4 MG CAP PO SCH ×2 (09:01→21:12)
[2020-06-03] MEDS: DEXAMETHASONE INJ 10 MG/ML VIAL IV SCH (09:01)
[2020-06-03] MEDS: IV SET AND CAP CHANGE INJ INJ SCH (16:13)
[2020-06-03] MEDS: IBUPROFEN 400 MG TAB PO PRN (23:11)
[2020-06-03] MEDS: ALPRAZolam 0.5 MG TAB PO PRN (23:11)
[2020-06-03] MEDS: guaiFENesin W/CODEINE LIQ 10 ML UD PO PRN (23:12)
[2020-06-03] MEDS: LIDOCAINE VISCOUS 2% 15 ML, diphenhydrAMINE HCL 37.5 MG, NYSTATIN SUSPENSION 15 ML, ALU... PO PRN ×4 (23:12)
[2020-06-04] MEDS: PANTOPRAZOLE SODIUM TAB 40 MG PO SCH (05:33)
[2020-06-04] MEDS: SODIUM CHLORIDE 0.9% (FLUSH) 10 ML SYG IV SCH ×2 (08:17→20:52)
[2020-06-04] MEDS: guaiFENesin ER TAB 600 MG TAB PO SCH ×2 (08:17→20:51)
[2020-06-04] MEDS: BIFIDOBACTERIUM INFANTIS 4 MG CAP PO SCH ×2 (08:17→20:51)
[2020-06-04] MEDS: MEROPENEM 1 GM in SODIUM CHL 0.9% 50ML MIN-BAG+ 50 ML IVPB SCH ×3 (08:17→23:27)
[2020-06-04] MEDS: APIXABAN 5 MG TAB PO SCH (08:17)
--- NOTE | 2020-06-04 08:18 | PN ---
SUPERVISING PHYSICIAN: Abhilash Holguin M.D. DATE: 06/03/20 SUBJECTIVE: The patient actually seems to be doing a little better today. He is able to maintain his oxygenation with high-flow nasal cannula. He has been off BiPAP quite often. He does obviously get short of breath with any exertional effort and that includes even sneezes, even blowing his nose. He has not had any nausea, vomiting, diarrhea, constipation or chest pain. OBJECTIVE: VITAL SIGNS: Temperature 98.6, pulse 89, blood pressure 128/84, respirations 18, saturation 93% on 12 liter nasal cannula. GENERAL: The patient is resting comfortably on the high-flow nasal cannula. He can speak pretty much in complete sentences, but does get short of breath quite easily, but no distress. CHEST: Lung sounds are a little bit better in aeration on auscultation, but still diminished significantly. No rales or rhonchi heard. HEART: Regular rate and rhythm. ABDOMEN: Soft, nontender. Positive bowel sounds. EXTREMITIES: Without edema. NEUROLOGIC: He is alert and oriented times three. LABORATORY: White count is down to 19,600, hemoglobin 12.7, hematocrit 38.2. Differential continues to show a left shift, but no bands. Coagulation studies is still greater than 5,000. Chemistries shows sodium 132, BUN 22, creatinine 0.65. Magnesium and calcium are normal. Liver functions are still elevated with ALT 124, AST is normal, alkaline phosphatase elevated at 125 but is down from previous labs. C-reactive protein is down to 2.9. RADIOLOGY: Chest per radiologic interpretation this morning of single view chest shows no significant changes in the marked haziness, noted left greater than right lung opacities. Review of the chest in my opinion looks like it is showing some improvement compared to previous days. ASSESSMENT: 1. COVID pneumonitis with secondary pneumonia. 2. Persistent hypoxic respiratory failure requiring noninvasive ventilation support. 3. Chronic tobacco abuse in a smoker. 4. Anxiety, likely due to #1. PLAN: We will continue with current plan of care with aggressive treatment with antibiotics with meropenem and he is finishing up azithromycin. He is on Eliquis. I believe he has finished a course of Decadron. He does remain on BiPAP as needed. We did increase his settings when he is on BiPAP to 12/8. Hopefully, he will be able to transition at some point where he will not need BiPAP. Until we can transition him down on his FiO2 requirements and get him back to outpatient management, we will continue to monitor and treat as needed. #[id number] [facility]
[2020-06-04] MEDS: ALBUTEROL INHALER 64 PUFF/8GM INH SCH (09:00)
[2020-06-04] MEDS ORDERED: ALBUTEROL SULFATE 2.5 MG/3 ML VIAL NEB PRN (10:32)
[2020-06-04] MEDS: IPRATROPIUM/ALBUTEROL 3 ML VIAL NEB SCH ×3 (13:17→21:01)
[2020-06-04] MEDS: guaiFENesin W/CODEINE LIQ 10 ML UD PO PRN (15:30)
[2020-06-04] MEDS ORDERED: SODIUM CHLORIDE 0.65% NASAL SPRAY 45 ML BTTL BNAS PRN (17:07)
--- NOTE | 2020-06-04 18:12 | PN ---
SUPERVISING PHYSICIAN: Abhilash Holguin M.D. DATE: 06/04/20 SUBJECTIVE: The patient is asleep, awakens easily. Still complains of shortness of breath, but it is somewhat less than yesterday. No other complaints. OBJECTIVE: VITAL SIGNS: Temperature 98.4, heart rate 75, blood pressure 120/75, respiratory rate 18, O2 saturation 94% on 10 liters high flow nasal cannula. RESPIRATORY: Diminished breath sounds throughout. CARDIAC: Regular rate and rhythm. NEUROLOGIC: He is awake, alert and oriented times three. LABORATORY: There are no labs or films to report today. ASSESSMENT: 1. COVID-19 pneumonitis with secondary pneumonia. 2. Persistent hypoxic respiratory failure requiring noninvasive ventilation. 3. Chronic tobacco abuse in a previous smoker. 4. Anxiety, most likely secondary to #1 and #2. PLAN: We will continue present supportive care. His D-dimer has been consistently greater than 5,000. I have discontinued his Eliquis and placed the patient on 1 mg per kg of Lovenox b.i.d. If his D-dimer does not improve, I will order a CTA of the chest tomorrow. I have ordered routine COVID labs and films for in the morning. Will monitor and treat as needed. #[id number] [facility]
[2020-06-04] MEDS ORDERED: ENOXAPARIN SODIUM 100 MG/ML SYG SUBCU ONE (18:57)
[2020-06-04] MEDS: ACETAMINOPHEN 325 MG TAB PO PRN (19:43)
[2020-06-04] MEDS: ALPRAZolam 0.5 MG TAB PO PRN (20:51)
[2020-06-04] MEDS: ENOXAPARIN SODIUM 100 MG/ML SYG SUBCU SCH (20:52)
[2020-06-05] MEDS: IBUPROFEN 400 MG TAB PO PRN ×3 (04:49→20:25)
[2020-06-05] MEDS: PANTOPRAZOLE SODIUM TAB 40 MG PO SCH (05:55)
--- NOTE | 2020-06-05 07:22 | RAD ---
: 1975. Technique: Portable AP upright chest x-ray. Comparison: June 03, 2020. Clinical history: COVID PNA. Heart size: Cardiomegaly. Lungs: Extensive asymmetric bilateral airspace consolidation consistent with pneumonia. There is little change. There is shallower inspiration. There is relative right-sided volume loss.. Pleura: No pleural effusion. No pneumothorax. Mediastinum and [place]: Unremarkable. Skeletal: Unremarkable. Support tubings: None. Impression: 1. Bilateral pneumonia. Electronically signed by: Donavan Hale MD 06/05/2020 7:21 AM MERCUR[employer] CELL CLEANER
[2020-06-05] MEDS: MEROPENEM 1 GM in SODIUM CHL 0.9% 50ML MIN-BAG+ 50 ML IVPB SCH ×3 (07:40→23:00)
[2020-06-05] MEDS: SODIUM CHLORIDE 0.9% (FLUSH) 10 ML SYG IV SCH ×2 (08:23→20:26)
[2020-06-05] MEDS: BIFIDOBACTERIUM INFANTIS 4 MG CAP PO SCH ×2 (08:23→20:25)
[2020-06-05] MEDS: ENOXAPARIN SODIUM 100 MG/ML SYG SUBCU SCH (08:23)
[2020-06-05] MEDS: guaiFENesin ER TAB 600 MG TAB PO SCH ×2 (08:23→20:26)
--- NOTE | 2020-06-05 09:14 | CT ---
EXAM DESCRIPTION: CTA Chest CLINICAL HISTORY: 44 years Male, covid; elev d-dimer TECHNIQUE: Volumetric CT angiographic data acquisition of the thorax was obtained. Standard axial and CT angiographic MIP sagittal and coronal images are submitted. This exam was performed according to our departmental dose-optimization program, which includes automated exposure control, adjustment of the mA and/or kV according to patient size and/or use of iterative reconstruction technique. COMPARISON: May 25, 2020 FINDINGS: The thyroid gland is unremarkable. No axillary adenopathy. Normal caliber thoracic aorta. No pericardial effusion. No evidence of acute process in the visualized upper abdomen. No mediastinal adenopathy. Bilateral lower lobe subsegmental pulmonary emboli suspected. Trace pneumomediastinum. No pneumothorax. No pleural effusion. Increased consolidative multifocal bilateral airspace disease. No acute or suspicious osseous abnormality. Scattered degenerative changes present. IMPRESSION: 1. Bilateral lower lobe subsegmental pulmonary emboli suspected. 2. Trace pneumomediastinum. 3. Increased consolidative multifocal bilateral airspace disease. Findings discussed with the ordering provider at 9:12 AM 06/05/2020 Electronically signed by: Hector Garcias MD 06/05/2020 9:12 AM [facility]
[2020-06-05] MEDS: IPRATROPIUM/ALBUTEROL 3 ML VIAL NEB SCH ×3 (09:30→18:00)
[2020-06-05] MEDS: HEPARIN SODIUM (PORCINE) 5,000 U/ML VIAL SUBCU SCH ×2 (14:01→22:37)
[2020-06-05] MEDS: guaiFENesin W/CODEINE LIQ 10 ML UD PO PRN ×2 (17:23→22:38)
[2020-06-05] MEDS: ALPRAZolam 0.5 MG TAB PO PRN (19:10)
--- NOTE | 2020-06-05 20:01 | PN ---
SUPERVISING PHYSICIAN: Abhilash Holguin M.D. DATE: 06/05/20 SUBJECTIVE: The patient is sitting up in his chair. He is feeling slightly less short of breath than he has been. He has been off the BiPAP most of the day. We discussed the new findings in his bilateral pulmonary emboli as well as his pneumomediastinum. He is encouraged to get up and move around. No complaints of nausea or vomiting. OBJECTIVE: VITAL SIGNS: Temperature 98.9, heart rate 95, blood pressure 120/80, respiratory rate 18, O2 saturation 96% on 10 liters high flow oxygen. RESPIRATORY: Diminished breath sounds throughout. CARDIAC: Regular rate and rhythm. NEUROLOGIC: He is awake, alert and oriented times three. LABORATORY: WBCs are 15,300 with hemoglobin 12.5, hematocrit 37.2. D-dimer is greater than 5,000. Sodium 134, potassium 4, chloride 96, BUN 17, creatinine 0.82, calcium 8.2, C reactive protein 6.8. Chest/thorax CTA shows: 1. Bilateral lower lobe subsegmental pulmonary emboli suspected. 2. Trace of pneumomediastinum. 3. Increased consolidated multifocal bilateral airspace disease. Chest x-ray shows bilateral pneumonia. ASSESSMENT: 1. COVID-19 pneumonitis with secondary pneumonia. 2. Persistent hypoxic respiratory failure requiring noninvasive ventilation. 3. Bilateral pulmonary emboli with a D-dimer of greater than 5,000. He has been on anticoagulation since admission. 4. Mild pneumomediastinum. 5. Chronic tobacco abuse in a previous smoker. 6. Anxiety, most likely secondary to #1 and #2. PLAN: We will continue present supportive care and continue on the COVID guidelines. Due to his bilateral pulmonary emboli, I have discontinued his Lovenox and changed him to Heparin 5,000 units every 8 hours. Will repeat his lab for in the morning and continue to wean his oxygen as tolerated. I will also get a chest x-ray to monitor that pneumomediastinum. Will follow and treat as needed. [facility][id number] [facility]
[2020-06-05] MEDS: HYDROcodone 7.5MG/APAP 325MG 1 EA TAB PO PRN (20:25)
[2020-06-05] MEDS: NYSTATIN SUSPENSION 500,000/5 ML UD MT SCH (20:25)
[2020-06-06] MEDS: IPRATROPIUM/ALBUTEROL 3 ML VIAL NEB SCH ×2 (03:45→07:43)
[2020-06-06] MEDS: ALPRAZolam 0.5 MG TAB PO PRN ×2 (05:27→18:29)
[2020-06-06] MEDS: IBUPROFEN 400 MG TAB PO PRN (05:27)
[2020-06-06] MEDS: HEPARIN SODIUM (PORCINE) 5,000 U/ML VIAL SUBCU SCH ×3 (05:28→22:03)
[2020-06-06] MEDS: guaiFENesin W/CODEINE LIQ 10 ML UD PO PRN ×3 (05:28→17:34)
[2020-06-06] MEDS: PANTOPRAZOLE SODIUM TAB 40 MG PO SCH (06:16)
[2020-06-06] MEDS: LEVALBUTEROL NEBS 1.25 MG/3 ML VIAL NEB SCH ×2 (07:34→16:25)
[2020-06-06] MEDS: BIFIDOBACTERIUM INFANTIS 4 MG CAP PO SCH ×2 (09:43→20:32)
[2020-06-06] MEDS: SODIUM CHLORIDE 0.9% (FLUSH) 10 ML SYG IV SCH ×2 (09:43→20:32)
[2020-06-06] MEDS: guaiFENesin ER TAB 600 MG TAB PO SCH ×2 (09:43→20:32)
[2020-06-06] MEDS: MEROPENEM 1 GM in SODIUM CHL 0.9% 50ML MIN-BAG+ 50 ML IVPB SCH ×3 (09:44→23:00)
[2020-06-06] MEDS: NYSTATIN SUSPENSION 500,000/5 ML UD MT SCH ×4 (09:47→20:30)
[2020-06-06] MEDS: LEVALBUTEROL NEBS 1.25 MG/3 ML VIAL NEB PRN (12:38)
--- NOTE | 2020-06-06 13:40 | RAD ---
EXAM DESCRIPTION: Chest,1 View CLINICAL HISTORY: 44 years Male, COVID PNA , trace pneumomediastinum COMPARISON: Yesterday Findings: One view(s)/radiograph(s) Cardiac silhouette obscured. No pulmonary vascular congestion. No pneumothorax. No pleural effusion. Trace pneumomediastinum. Improving multifocal bilateral confluent airspace disease. No acute osseous abnormality. IMPRESSION: Improving multifocal bilateral confluent airspace disease. Electronically signed by: Hector Garcias MD 06/06/2020 1:38 PM [facility]
[2020-06-06] MEDS ORDERED: SODIUM CHL 0.9% 50ML MIN-BAG+ 0 ML IVPB ONE (15:22)
--- NOTE | 2020-06-06 15:57 | PN ---
SUPERVISING PHYSICIAN: Abhilash Holguin M.D. DATE: 06/06/20 SUBJECTIVE: The patient is sitting in his chair getting a breathing treatment. He says he feels okay but still having some shortness of breath. He has been on BiPAP most of the day. OBJECTIVE: VITAL SIGNS: Temperature 97.8, pulse 95, blood pressure 112/63, respiratory rate 20, O2 saturation 97% on 8 liters, high flow. GENERAL: The patient looks to be resting comfortably, in no distress. He is taking a breathing treatment. CHEST: Lung sounds are fairly clear, just diminished throughout. CARDIAC: Regular rate and rhythm. ABDOMEN: Soft, non-tender, positive bowel sounds. EXTREMITIES: Without edema. NEUROLOGIC: He is alert and oriented times three. LABORATORY: White count down to 12,200, hemoglobin 11.9, hematocrit 35.6. Platelet count at 301,000. Differential does show a left shift. Chemistries show sodium 133, potassium 4.3, creatinine 0.69. Liver functions all within normal limits. RADIOLOGY: Chest x-ray today per radiology interpretation showed improving multifocal pneumonia, confluent airspace disease. ASSESSMENT: 1. COVID-19 pneumonitis with secondary pneumonia. 2. Persistent hypoxic respiratory failure requiring noninvasive ventilation. 3. Bilateral pulmonary emboli with a D-dimer of greater than 5,000. He has been on anticoagulation since admission. 4. Mild pneumomediastinum. 5. Chronic tobacco abuse in a previous smoker. 6. Anxiety, most likely secondary to #1 and #2. PLAN: We will continue with current plan of care with aggressive pulmonary hygiene. He remains on meropenem for antibiotic coverage. He has been switched to heparin for PE treatment. He is on Protonix, breathing treatments with Xopenex. Hopefully, we will be able to transition him to outpatient manage within the next one to two days. If he continues to show decline in his need for 02 and is down in the low 40s on nasal cannula, he can go home on oxygen. Until then, we will continue to monitor and treat as needed. [id number] [facility]
[2020-06-06] MEDS: IV SET AND CAP CHANGE INJ INJ SCH (16:55)
[2020-06-06] MEDS: ACETAMINOPHEN 325 MG TAB PO PRN (17:33)
[2020-06-06] MEDS: HYDROcodone 7.5MG/APAP 325MG 1 EA TAB PO PRN (20:32)
[2020-06-07] MEDS: guaiFENesin W/CODEINE LIQ 10 ML UD PO PRN ×3 (01:22→14:43)
[2020-06-07] MEDS: ALPRAZolam 0.5 MG TAB PO PRN ×2 (01:22→20:39)
[2020-06-07] MEDS: LEVALBUTEROL NEBS 1.25 MG/3 ML VIAL NEB SCH ×3 (01:32→16:35)
[2020-06-07] MEDS: HEPARIN SODIUM (PORCINE) 5,000 U/ML VIAL SUBCU SCH ×3 (05:52→22:30)
[2020-06-07] MEDS: PANTOPRAZOLE SODIUM TAB 40 MG PO SCH (05:52)
[2020-06-07] MEDS: MEROPENEM 1 GM in SODIUM CHL 0.9% 50ML MIN-BAG+ 50 ML IVPB SCH ×3 (07:45→23:35)
--- NOTE | 2020-06-07 07:57 | RAD ---
: 1975. Technique: Portable AP upright chest x-ray. Comparison: June 06, 2020. Clinical history: covid. Heart size: Heart size is enlarged. Lungs: Extensive bilateral airspace infiltrates. Seen in the peripheral mid and lower right lung field and throughout most of the left lung sparing the apex. The left diaphragm remains obscured. Findings consistent with viral pneumonia and unchanged. Pleura: No pleural effusion. No pneumothorax. Mediastinum and suma: Unremarkable. Skeletal: Unremarkable. Support tubings: None. Impression: 1. Unchanged bilateral pneumonia. 2. Cardiomegaly. Electronically signed by: Donavan Hale MD 06/07/2020 7:55 AM [employer]ES [employer]GER [employer]
[2020-06-07] MEDS: NYSTATIN SUSPENSION 500,000/5 ML UD MT SCH ×4 (08:23→21:36)
[2020-06-07] MEDS: BIFIDOBACTERIUM INFANTIS 4 MG CAP PO SCH ×2 (08:23→21:36)
[2020-06-07] MEDS: guaiFENesin ER TAB 600 MG TAB PO SCH ×2 (08:23→21:36)
[2020-06-07] MEDS: SODIUM CHLORIDE 0.9% (FLUSH) 10 ML SYG IV SCH ×2 (08:23→21:36)
--- NOTE | 2020-06-07 18:25 | PN ---
SUPERVISING PHYSICIAN: Abhilash Holguin M.D. DATE: 06/07/20 SUBJECTIVE: The patient seems to be slightly improving daily. He has been off BiPAP now for 24 hours on high flow and seems to do okay. He remains afebrile. OBJECTIVE: VITAL SIGNS: Temperature 99.2, pulse 97, blood pressure 97/58, respirations 20, satting 96% on 8 liters of high flow nasal cannula. GENERAL: The patient looks to be resting comfortably in bedside chair. CHEST: Lung sounds are just diminished. No obvious rhonchi, wheezing or rales. HEART: Regular rate and rhythm. ABDOMEN: Soft, non-tender. Positive bowel sounds. EXTREMITIES: Without edema. NEUROLOGIC: He is alert and oriented times three. LABORATORY: White count is back up to 15.3, hemoglobin 11.7, hematocrit 35.3. Differential shows to be with a continued left shift. Chemistries are showing sodium 131, potassium 4.2, creatinine 0.74, magnesium normal at 1.9, calcium 8.4. C reactive protein is back up to 14.5. MICROBIOLOGY: No specimens are pending. RADIOLOGY: Repeat chest x-ray today per radiology interpretation shows unchanged bilateral pneumonia with cardiomegaly. ASSESSMENT: 1. COVID-19 pneumonitis with secondary pneumonia. 2. Persistent hypoxic respiratory failure requiring noninvasive ventilation. 3. Bilateral pulmonary emboli with a D-dimer of greater than 5,000. He has been on anticoagulation since admission. 4. Mild pneumomediastinum. 5. Chronic tobacco abuse in a previous smoker. 6. Anxiety, most likely secondary to #1 and #2. PLAN: Will continue to titrate his oxygen down as possible. Hopefully be able to transition down below 4 liters within the next 24 hours and work to transition home hopefully by Tuesday. Until then will continue with Meropenem on antibiotic coverage. No other changes noted to plan of care today. He remains on Xopenex breathing treatments. Again, will try to titrate his O2 down as this may allow. Until we can transition to outpatient management will continue to monitor and treat as needed. [facility][id number] [facility]
[2020-06-07] MEDS: ACETAMINOPHEN 325 MG TAB PO PRN (20:39)
[2020-06-08] MEDS: LEVALBUTEROL NEBS 1.25 MG/3 ML VIAL NEB SCH ×4 (01:15→23:55)
[2020-06-08] MEDS: ACETAMINOPHEN 325 MG TAB PO PRN ×2 (02:10→19:25)
[2020-06-08] MEDS: PANTOPRAZOLE SODIUM TAB 40 MG PO SCH (05:55)
[2020-06-08] MEDS: HEPARIN SODIUM (PORCINE) 5,000 U/ML VIAL SUBCU SCH ×3 (05:55→21:34)
[2020-06-08] MEDS: MEROPENEM 1 GM in SODIUM CHL 0.9% 50ML MIN-BAG+ 50 ML IVPB SCH ×3 (08:27→23:08)
--- NOTE | 2020-06-08 09:19 | RAD ---
: 1975. Technique: Portable AP chest x-ray. Comparison: June 07, 2020. Clinical history: SOB. Heart size: Heart size is enlarged. Lungs: Shallow inspiration. Extensive heterogeneous airspace opacities from pneumonia with greater involvement on the left side but unchanged in the interim since yesterday. Pleura: No pleural effusion. No pneumothorax. Mediastinum and suma: Unremarkable. Skeletal: Unremarkable. Support tubings: None. Impression: 1. Cardiomegaly. 2. Unchanged bilateral pneumonia. Electronically signed by: Donavan Hale MD 06/08/2020 9:18 AM [facility]
[2020-06-08] MEDS: NYSTATIN SUSPENSION 500,000/5 ML UD MT SCH ×4 (09:37→20:43)
[2020-06-08] MEDS: BIFIDOBACTERIUM INFANTIS 4 MG CAP PO SCH ×2 (09:38→20:42)
[2020-06-08] MEDS: guaiFENesin ER TAB 600 MG TAB PO SCH ×2 (09:38→20:42)
[2020-06-08] MEDS: ALPRAZolam 0.5 MG TAB PO PRN ×2 (09:38→20:42)
[2020-06-08] MEDS: SODIUM CHLORIDE 0.9% (FLUSH) 10 ML SYG IV SCH ×2 (09:38→20:43)
[2020-06-08] MEDS: LEVALBUTEROL NEBS 1.25 MG/3 ML VIAL NEB PRN (12:55)
--- NOTE | 2020-06-08 19:48 | PN ---
SUPERVISING PHYSICIAN: Abhilash Holguin M.D. DATE: 06/08/20 SUBJECTIVE: The patient had a fairly miserable night, in his words. He had a low-grade fever, just did not feel well. Had a little nausea which did resolve with Zofran. His shortness of breath actually was not reportedly increased. He had no signs of respiratory distress, but just overall was not feeling well. This morning he reports that he is feeling a little bit better especially when his fever broke. OBJECTIVE: VITAL SIGNS: T max temperature was 99.7, pulse 87, blood pressure 111/71, respirations 18, satting 92 to 94% on 8 liters high flow nasal cannula. GENERAL: The patient looks to be in no distress. He does look tired but he is reporting he is feeling a little bit better this morning. He is alert. CHEST: Lung sounds are just diminished. No obvious rhonchi, wheezing or rales. HEART: Regular rate and rhythm. ABDOMEN: Soft, non-tender. Positive bowel sounds. EXTREMITIES: Without edema. NEUROLOGIC: He is alert and oriented times three. LABORATORY STUDIES: White count is still trending to baseline levels at 11.9, that is from admission initially of 21,800. Chemistries are showing normal electrolytes. Creatinine remains within normal limits at 0.76, C reactive protein has now started to trend back down to baseline levels at 13.5, levels from yesterday of 14.5. Troponins are less than 0.02, CK showing to be low at 20. RADIOLOGY: Repeat chest x-ray this morning per radiology interpretation shows unchanged bilateral pneumonia with cardiomegaly. ASSESSMENT: 1. COVID-19 pneumonitis with secondary pneumonia. 2. Persistent hypoxic respiratory failure requiring high flow nasal cannula now. 3. Bilateral pulmonary emboli with a D-dimer of greater than 5,000. He has been on anticoagulation since admission. 4. Mild pneumomediastinum appearing to be stable, likely from extended length of time on BiPAP. 5. Chronic tobacco abuse in a previous smoker. 6. Anxiety, most likely secondary to #1 and #2. PLAN: Will continue plan of care at this point with him just remaining on Meropenem for antibiotic coverage. We are still working to titrate his O2 down. Hopefully, if we can get him down below 4 liters, he could go home in the next 2 to 3 days. Until then will continue to monitor and treat as needed and provide aggressive pulmonary hygiene. Should he show a decline, certainly will make adjustments to his plan of care at that point. Until we can transition to outpatient management will continue to monitor and treat as needed. #[id number] [facility]
[2020-06-08] MEDS: IBUPROFEN 400 MG TAB PO PRN (21:34)
[2020-06-09] MEDS: HEPARIN SODIUM (PORCINE) 5,000 U/ML VIAL SUBCU SCH (05:28)
[2020-06-09] MEDS: PANTOPRAZOLE SODIUM TAB 40 MG PO SCH (06:01)
[2020-06-09] MEDS ORDERED: MEROPENEM 1 GM VIAL IVPB ONE (07:41)
[2020-06-09] MEDS: MEROPENEM 1 GM in SODIUM CHL 0.9% 50ML MIN-BAG+ 50 ML IVPB SCH (08:18)
[2020-06-09] MEDS: NYSTATIN SUSPENSION 500,000/5 ML UD MT SCH ×4 (08:19→21:05)
[2020-06-09] MEDS: SODIUM CHLORIDE 0.9% (FLUSH) 10 ML SYG IV SCH ×2 (08:19→20:35)
[2020-06-09] MEDS: guaiFENesin W/CODEINE LIQ 10 ML UD PO PRN ×2 (08:22→17:50)
[2020-06-09] MEDS: ALPRAZolam 0.5 MG TAB PO PRN ×2 (08:22→17:51)
[2020-06-09] MEDS: BIFIDOBACTERIUM INFANTIS 4 MG CAP PO SCH ×2 (08:26→20:34)
[2020-06-09] MEDS: guaiFENesin ER TAB 600 MG TAB PO SCH ×2 (08:26→20:34)
[2020-06-09] MEDS: LEVALBUTEROL NEBS 1.25 MG/3 ML VIAL NEB SCH ×2 (09:15→16:35)
[2020-06-09] MEDS ORDERED: methylPREDNISolone SODIUM SUC 40 MG/ML VIAL ONE ×2 (10:01→14:21)
[2020-06-09] MEDS: methylPREDNISolone SODIUM SUC 40 MG/ML VIAL IV SCH ×2 (10:02→16:48)
[2020-06-09] MEDS: ENOXAPARIN SODIUM 100 MG/ML SYG SUBCU SCH ×2 (10:02→20:34)
--- NOTE | 2020-06-09 10:49 | PN ---
SUPERVISING PHYSICIAN: Edson Renee MD DATE: 06/09/20 SUBJECTIVE: The patient states he feels okay today. He slept okay. He is still having coughing on occasion. OBJECTIVE: VITAL SIGNS: Blood pressure 135/74, heart rate 87, respiratory rate 28, temperature 98.3, oxygen saturation anywhere from 87% to 97% on 8 liters via high flow. GENERAL: Mr. Pimentel is a 44-year-old male patient who currently does not appear to be in any active distress. NEUROLOGIC: The patient is alert and oriented. LUNGS: Diminished with bibasilar rales. CARDIOVASCULAR: Regular rate and rhythm. Normal S1, S2. ABDOMEN: Soft. Positive bowel sounds. EXTREMITIES: Lower extremities with no edema. LABORATORY: No labs for review. RADIOLOGY: No chest x-ray for review today. ASSESSMENT: 1. Acute hypoxemic respiratory failure. 2. COVID-19 pneumonitis. 3. Bilateral pulmonary emboli. 4. Pneumomediastinum, stable. 5. History of tobacco abuse in a previous smoker. 6. Anxiety. PLAN: We will continue the Merrem as he has been on this for 2 weeks. Additionally, we wean the FiO2 as tolerated. I placed him on scheduled Lovenox for the pulmonary emboli. Upon discharge, he will need to be on p.o. anticoagulation for at least 30 days and can be evaluated by primary care provider. Lack of insurance may be an issue, but he will need to be on anticoagulation. Likely, this is secondary to the COVID-19 virus, however, cannot rule out any hypercoagulability that was pre-existing prior to the COVID- 19. I am going to go ahead and put him on scheduled Solu-Medrol as well because his CRP is still elevated. We will continue to check labs and x-rays as needed. [facility][id number] [facility]
[2020-06-09] MEDS: LEVALBUTEROL NEBS 1.25 MG/3 ML VIAL NEB PRN (13:10)
[2020-06-09] MEDS ORDERED: NYSTATIN SUSPENSION 500,000/5 ML UD ONE (14:21)
[2020-06-09] MEDS: IV SET AND CAP CHANGE INJ INJ SCH (16:47)
[2020-06-09] MEDS: IBUPROFEN 400 MG TAB PO PRN (17:50)
[2020-06-10] MEDS: LEVALBUTEROL NEBS 1.25 MG/3 ML VIAL NEB SCH ×3 (00:10→16:40)
[2020-06-10] MEDS: methylPREDNISolone SODIUM SUC 40 MG/ML VIAL IV SCH ×5 (00:13→23:48)
[2020-06-10] MEDS: guaiFENesin W/CODEINE LIQ 10 ML UD PO PRN ×4 (05:59→21:37)
[2020-06-10] MEDS: ALPRAZolam 0.5 MG TAB PO PRN ×3 (05:59→21:36)
[2020-06-10] MEDS: PANTOPRAZOLE SODIUM TAB 40 MG PO SCH (06:09)
[2020-06-10] MEDS ORDERED: NITROGLYCERIN 0.4 MG 25 EA TAB SL ONE (06:19)
[2020-06-10] MEDS ORDERED: MORPHINE SULFATE INJ 10 MG/ML VIAL IV ONE ×3 (06:20→09:53)
[2020-06-10] MEDS: NITROGLYCERIN 0.4 MG 25 EA TAB SL PRN ×3 (06:23→06:35)
[2020-06-10] MEDS ORDERED: KETOROLAC TROMETHAMINE INJ 30 MG/ML VIAL IV ONE (06:37)
[2020-06-10] MEDS ORDERED: ALUM & MAG HYDROX-SIMETHICONE 30 ML, LIDOCAINE VISCOUS 2% 15 ML PO ONE ×2 (06:52)
--- NOTE | 2020-06-10 06:54 | RAD ---
PROCEDURE:XR CHEST 1 VIEW HISTORY:covid-19 COMPARISON: June 08, 2020 FINDINGS: The heart again appears mildly prominent. The patient has developed a left-sided pneumothorax measuring approximately 1.4 cm. There are stable bilateral pulmonary infiltrates. There are no acute bony or soft tissue abnormalities. IMPRESSION: Left-sided pneumothorax. Stable bilateral pulmonary infiltrates Electronically signed by: Omari Farr MD 06/10/2020 6:53 AM [facility]
[2020-06-10] MEDS: NYSTATIN SUSPENSION 500,000/5 ML UD MT SCH ×4 (07:08→21:39)
[2020-06-10] MEDS ORDERED: LIDOCAINE HCL 2% (MOUTH-THROAT) 15 ML UD ONE ×2 (07:48→07:50)
[2020-06-10] MEDS ORDERED: ALUM & MAG HYDROX-SIMETHICONE 30 ML UD ONE (07:50)
[2020-06-10] MEDS ORDERED: POVIDONE IODINE 10 % 15 ML UD TOP ONE (09:10)
[2020-06-10] MEDS ORDERED: ceFAZolin SODIUM 2 GM in SODIUM CHLORIDE 0.9% 100ML 100 ML IVPB ONE (09:38)
[2020-06-10] MEDS: SODIUM CHLORIDE 0.9% (FLUSH) 10 ML SYG IV SCH ×2 (09:59→21:41)
[2020-06-10] MEDS: BIFIDOBACTERIUM INFANTIS 4 MG CAP PO SCH ×2 (09:59→21:34)
[2020-06-10] MEDS: guaiFENesin ER TAB 600 MG TAB PO SCH ×2 (09:59→21:35)
[2020-06-10] MEDS: ENOXAPARIN SODIUM 100 MG/ML SYG SUBCU SCH ×2 (10:03→21:35)
--- NOTE | 2020-06-10 10:10 | PN ---
SUPERVISING PHYSICIAN: Edson Renee MD DATE: 06/10/20 SUBJECTIVE: The patient had a rough morning. He had complaints of significant chest pain this morning and I was called to the bedside. Troponin was negative. EKG was unremarkable. He was given some sublingual nitro followed by some morphine. Chest x-ray was done which showed a left sided pneumothorax. OBJECTIVE: VITAL SIGNS: Blood pressure 110/69, heart rate 87, respiratory rate about 28, temperature 98.0, oxygen saturation 98% on non-rebreather. GENERAL: Mr. Pimentel is a 44-year-old male patient in respiratory distress and distress secondary to pain. NEUROLOGIC: The patient is alert and oriented. LUNGS: Scattered rhonchi bilaterally. CARDIOVASCULAR: Regular rate and rhythm. Normal S1, S2. ABDOMEN: Soft. Positive bowel sounds. EXTREMITIES: Lower extremities with no edema. Pulses 2+. Capillary refill less than 2 seconds. LABORATORY: White count 21.1 although I did start him on corticosteroids yesterday. Hemoglobin 12.6, hematocrit 38.0, platelet count 438. D-dimer 4,920. Chemistry with elevated glucose of 302. CRP down to 9.1. Troponin negative at less than 0.02. ASSESSMENT: 1. Acute hypoxemic respiratory failure. 2. COVID-19 pneumonitis. 3. Left sided pneumothorax. 4. Bilateral pulmonary emboli. 5. Pneumomediastinum, resolved on chest x-ray. 6. History of tobacco abuse in a previous smoker. 7. Anxiety. PLAN: His leukocytosis is likely due to the Solu-Medrol that was started yesterday, but we will monitor for fever or signs of infection. I did contact Dr. Galvez for chest tube which will be placed this morning. I put him on scheduled Lovenox at therapeutic dosing for the pulmonary emboli. CRP is a little bit better today, likely secondary to the Solu-Medrol. I will continue all current medications and reevaluate labs as well as chest x-ray tomorrow. #[id number] [facility]
--- NOTE | 2020-06-10 10:16 | RAD ---
EXAM DESCRIPTION: Chest,1 View CLINICAL HISTORY: chest tube placed COMPARISON: June 10, 2020 IMPRESSION: Single AP portable upright view of the chest shows enlargement of the cardiomediastinal silhouette. Lungs are hypoaerated. Moderate coarsened interstitial alveolar airspace infiltrate throughout the lungs bilaterally are seen compatible with bilateral pneumonia. Interval placement of left-sided chest tube with tip seen in the region of the left aortic knob. The pneumothorax in the left chest seen on previous exam is improved. Airspace density in the medial mid to inferior aspect of the left chest may represent loculated air collection in the pleural space. No significant pleural effusion is seen. Electronically signed by: Torsten Rainey MD 06/10/2020 10:15 AM [facility]
--- NOTE | 2020-06-10 10:26 | OP ---
DATE OF PROCEDURE: 06/10/20 PREOPERATIVE DIAGNOSIS: 1. Left sided pneumothorax post 2 weeks hospitalization and treatment for COVID with pneumonia and pulmonary embolism. POSTOPERATIVE DIAGNOSIS: PROCEDURE: 1. Placement of 24-[place] chest tube, left chest, anterior axillary line. SURGEON: Lavon Galvez MD PROCEDURE: The patient was placed in supine position, comfortable. He was prepped and draped in sterile fashion. Local anesthesia was instilled. I went down, identifying the rib. He was relatively obese in this area, but he tolerated it well. Once we could feel the rib, we gently spread with the Pean clamp and entered the chest cavity. I placed my finger and could feel the pleura. We entered the pleura and did get a drummond of air. The chest tube was then gently placed about 12 cm, which he tolerated well with no pain. He is on blood thinners. We had minimal bleeding, only from the skin. The chest tube was then secured to the skin with 2-0 Silk. The remaining defect was closed with running 2-0. The chest tube was then placed to the Pleur-evac and placed to suction. There were some bubbles, but then they ceased. The patient tolerated it well. He did not have significant pain post procedure. He was having a lot of pain before, so I think symptomatically he is already improved. The wound was then dressed. He was comfortable. We ordered a followup chest x- ray. I did have a hole in the glove. I was double glove, but the glove underneath was not sterile, so we will order 2 grams of Ancef. #[id number] [facility]
[2020-06-10] MEDS ORDERED: LIDOCAINE 1% 50 ML VIAL INJ ONE (10:31)
[2020-06-10] MEDS: HYDROcodone 7.5MG/APAP 325MG 1 EA TAB PO PRN ×3 (11:20→21:36)
[2020-06-10] MEDS: LEVALBUTEROL NEBS 1.25 MG/3 ML VIAL NEB PRN (22:30)
[2020-06-11] MEDS: LEVALBUTEROL NEBS 1.25 MG/3 ML VIAL NEB SCH ×3 (01:02→18:30)
[2020-06-11] MEDS: HYDROcodone 7.5MG/APAP 325MG 1 EA TAB PO PRN ×4 (05:44→23:42)
[2020-06-11] MEDS: PANTOPRAZOLE SODIUM TAB 40 MG PO SCH (05:44)
[2020-06-11] MEDS: guaiFENesin W/CODEINE LIQ 10 ML UD PO PRN ×3 (05:45→16:13)
[2020-06-11] MEDS: methylPREDNISolone SODIUM SUC 40 MG/ML VIAL IV SCH ×4 (05:48→23:41)
[2020-06-11] MEDS: NYSTATIN SUSPENSION 500,000/5 ML UD MT SCH ×4 (06:27→20:10)
--- NOTE | 2020-06-11 07:13 | RAD ---
EXAM: Chest Radiography COMPARISON: Chest radiograph June 10, 2020 INDICATION: MAIN covid/pneumothorax FINDINGS: A single AP view of the chest demonstrates an indistinct cardiomediastinal silhouette. Stable left chest tube. Mild decrease in size of the small medial left pneumothorax. Small pleural effusions are stable. Progression of diffuse bilateral consolidations with reduced overall aeration. Osseous structures are intact. IMPRESSION: 1. Stable left chest tube with mild decrease in size of the small medial left pneumothorax. 2. Worsening multifocal pneumonia. Electronically signed by: Francis Tejada MD 06/11/2020 7:12 AM [employer]AL R[employer] REPA[employer]
[2020-06-11] MEDS: BIFIDOBACTERIUM INFANTIS 4 MG CAP PO SCH ×2 (08:09→20:10)
[2020-06-11] MEDS: ENOXAPARIN SODIUM 100 MG/ML SYG SUBCU SCH ×2 (08:09→20:09)
[2020-06-11] MEDS: guaiFENesin ER TAB 600 MG TAB PO SCH ×2 (08:09→20:10)
--- NOTE | 2020-06-11 12:04 | PN ---
SUPERVISING PHYSICIAN: Edson Renee MD DATE: 06/11/20 SUBJECTIVE: The patient is sitting up in bed. He is somewhat anxious. It was reported by nursing that he is very hesitant to move around. We discussed coughing and deep breathing as well as ambulation in the room. He did say that he was scared given the fact that he got a chest tube yesterday. OBJECTIVE: VITAL SIGNS: Temperature 98.6, heart rate 98, blood pressure 129/79, respiratory rate 24, O2 saturation 96% on 6 to 8 liters high flow nasal cannula. RESPIRATORY: Diminished throughout and he is tachypneic at rest. CARDIAC: Regular rate and rhythm. NEUROLOGIC: Awake, alert and oriented times three. LABORATORY: WBCs 27,100, hemoglobin 11.3, hematocrit 33.2. He has a left shift on differential. D-dimer 3,220. Sodium 131, potassium 4.6, chloride 95, ALT 66, C-reactive protein 3.7. RADIOLOGY: Chest x-ray shows 1) Stable left chest tube with mild decrease in size of the small medial left pneumothorax. 2) Worsening multifocal pneumonia. All other labs and films have been reviewed via the EMR. ASSESSMENT: 1. Acute hypoxemic respiratory failure. 2. COVID-19 pneumonitis. 3. Left sided pneumothorax, requiring chest tube. 4. Bilateral pulmonary emboli. 5. Pneumomediastinum, resolved on chest x-ray. 6. History of tobacco abuse in a previous smoker. 7. Anxiety. PLAN: His leukocytosis continues to increase. I will speak to Dr. Vic Galvez, general surgeon, about antibiotic coverage. I have also started him on some Celexa for his anxiety and depression as well as getting through his [facility]. We will continue monitoring his labs closely. I have also ordered physical therapy to evaluate and treat. Hopefully, he can have physical therapy at least once daily. I will order lab and chest x-ray for tomorrow. We will continue to monitor and treat as needed. [facility][id number] [facility]
[2020-06-11] MEDS: LEVALBUTEROL NEBS 1.25 MG/3 ML VIAL NEB PRN (12:33)
[2020-06-11] MEDS: CITALOPRAM HBR 20 MG TAB PO SCH (15:54)
[2020-06-11] MEDS: SODIUM CHLORIDE 0.9% (FLUSH) 10 ML SYG IV SCH ×2 (15:54→20:10)
[2020-06-11] MEDS: ALPRAZolam 0.5 MG TAB PO PRN (23:42)
[2020-06-12] MEDS: LEVALBUTEROL NEBS 1.25 MG/3 ML VIAL NEB SCH ×3 (00:10→18:15)
[2020-06-12] MEDS: methylPREDNISolone SODIUM SUC 40 MG/ML VIAL IV SCH ×3 (05:13→17:06)
[2020-06-12] MEDS: HYDROcodone 7.5MG/APAP 325MG 1 EA TAB PO PRN ×4 (05:14→20:55)
[2020-06-12] MEDS: PANTOPRAZOLE SODIUM TAB 40 MG PO SCH (05:15)
[2020-06-12] MEDS: LIDOCAINE VISCOUS 2% 15 ML, diphenhydrAMINE HCL 37.5 MG, NYSTATIN SUSPENSION 15 ML, ALU... PO PRN ×4 (05:45)
[2020-06-12] MEDS: guaiFENesin W/CODEINE LIQ 10 ML UD PO PRN (05:45)
--- NOTE | 2020-06-12 07:25 | RAD ---
EXAM DESCRIPTION: XR Chest, one view CLINICAL HISTORY: covid. COMPARISON: 06/11/2020 FINDINGS: Left chest tube is unchanged in position. The heart is normal in size. The pulmonary vascularity is normal. Inspiratory effort is moderate. Bilateral mixed interstitial and alveolar infiltrates are noted without remarkable interval change. No pneumothorax or pleural effusion is seen. The osseous structures appear unremarkable. IMPRESSION: No interval change. Electronically signed by: Mary Acosta MD 06/12/2020 7:23 AM [employer]NAGER [employer]
[2020-06-12] MEDS: SODIUM CHLORIDE 0.9% (FLUSH) 10 ML SYG IV SCH ×2 (08:45→20:56)
[2020-06-12] MEDS: BIFIDOBACTERIUM INFANTIS 4 MG CAP PO SCH ×2 (08:45→20:56)
[2020-06-12] MEDS: guaiFENesin ER TAB 600 MG TAB PO SCH ×2 (08:45→20:56)
[2020-06-12] MEDS: CITALOPRAM HBR 20 MG TAB PO SCH (08:45)
[2020-06-12] MEDS: ENOXAPARIN SODIUM 100 MG/ML SYG SUBCU SCH ×2 (08:45→20:56)
[2020-06-12] MEDS: NYSTATIN SUSPENSION 500,000/5 ML UD MT SCH ×2 (08:45→11:30)
[2020-06-12] MEDS: LEVALBUTEROL NEBS 1.25 MG/3 ML VIAL NEB PRN ×2 (13:32→20:26)
[2020-06-12] MEDS ORDERED: NYSTATIN SUSPENSION 500,000/5 ML UD MT PRN (14:30)
--- NOTE | 2020-06-12 15:36 | PN ---
SUPERVISING PHYSICIAN: Edson Renee MD DATE: 06/12/20 SUBJECTIVE: The patient is walking in the hallways. He is somewhat short of breath but has walked several times today and has done quite well. He denies chest pain, nausea or vomiting. OBJECTIVE: VITAL SIGNS: Temperature 97.4, heart rate 96, blood pressure 131/81, respiratory rate 20 to 22, O2 saturation 95% on high flow nasal cannula at 6 liters. RESPIRATORY: Diminished at the bases but otherwise clear to auscultation. His breath sounds are somewhat distant. CARDIAC: Regular rate and rhythm. NEUROLOGIC: Awake, alert and oriented times three. LABORATORY: WBCs 23,500, hemoglobin 10.9, hematocrit 32.6. D-dimer 2,710. Sodium is slightly low at 132, otherwise, his electrolytes are within normal limits. RADIOLOGY: Chest x-ray shows left chest tube in position, unchanged. Inspiratory effort is moderate, bilateral mixed interstitial and alveolar infiltrates are noted without remarkable interval changed. No pneumothorax or pleural effusion see. All other labs and films have been reviewed via the EMR. ASSESSMENT: 1. Acute hypoxemic respiratory failure. 2. COVID-19 pneumonitis. 3. Left sided pneumothorax, requiring chest tube. 4. Bilateral pulmonary emboli. 5. Pneumomediastinum, resolved on chest x-ray. 6. History of tobacco abuse in a previous smoker. 7. Anxiety. PLAN: We will continue present supportive care including continuing to wean down his oxygen. He has been encouraged to continue to walk in the hallways as he has done several times today. I will hold on lab and x-ray tomorrow and followup with that on Tuesday. Clinically, he seems to be slowly improving but we will monitor and treat as needed. #[id number] [facility]
[2020-06-12] MEDS: ALPRAZolam 0.5 MG TAB PO PRN ×2 (16:05→20:55)
[2020-06-12] MEDS: IV SET AND CAP CHANGE INJ INJ SCH (16:56)
[2020-06-13] MEDS: LEVALBUTEROL NEBS 1.25 MG/3 ML VIAL NEB SCH ×3 (00:15→16:08)
[2020-06-13] MEDS: ALPRAZolam 0.5 MG TAB PO PRN ×3 (04:27→20:52)
[2020-06-13] MEDS: HYDROcodone 7.5MG/APAP 325MG 1 EA TAB PO PRN ×3 (04:27→20:51)
[2020-06-13] MEDS: PANTOPRAZOLE SODIUM TAB 40 MG PO SCH (06:11)
[2020-06-13] MEDS ORDERED: predniSONE 20 MG TAB ONE (07:32)
[2020-06-13] MEDS: CITALOPRAM HBR 20 MG TAB PO SCH (08:27)
[2020-06-13] MEDS: guaiFENesin ER TAB 600 MG TAB PO SCH ×2 (08:27→20:52)
[2020-06-13] MEDS: ENOXAPARIN SODIUM 100 MG/ML SYG SUBCU SCH ×2 (08:27→20:52)
[2020-06-13] MEDS: BIFIDOBACTERIUM INFANTIS 4 MG CAP PO SCH ×2 (08:28→20:51)
[2020-06-13] MEDS: predniSONE 20 MG TAB PO SCH (08:28)
[2020-06-13] MEDS: SODIUM CHLORIDE 0.9% (FLUSH) 10 ML SYG IV SCH ×2 (10:43→20:52)
[2020-06-13] MEDS: IBUPROFEN 400 MG TAB PO PRN (15:28)
[2020-06-13] MEDS: ACETAMINOPHEN 325 MG TAB PO PRN (15:30)
--- NOTE | 2020-06-13 18:28 | RAD ---
XR CHEST 1 VIEW HISTORY: Covid positive. COMPARISON: 06/12/2020 FINDINGS: The heart size is within normal limits. There is no pulmonary vascular congestion. Unchanged bilateral patchy airspace disease. No pleural effusions or pneumothorax. No acute bony findings are seen. The left-sided chest tube is stable. IMPRESSION: Unchanged bilateral patchy airspace disease. Stable left-sided chest tube. Electronically signed by: Zenon Peña MD 06/13/2020 6:26 PM FLOOR PRESS OPERATOR
[2020-06-14] MEDS: guaiFENesin W/CODEINE LIQ 10 ML UD PO PRN ×2 (00:14→17:45)
[2020-06-14] MEDS: LEVALBUTEROL NEBS 1.25 MG/3 ML VIAL NEB SCH ×3 (00:15→18:15)
[2020-06-14] MEDS: IBUPROFEN 400 MG TAB PO PRN (04:57)
[2020-06-14] MEDS: ALPRAZolam 0.5 MG TAB PO PRN ×2 (04:57→20:44)
[2020-06-14] MEDS: ACETAMINOPHEN 325 MG TAB PO PRN (04:58)
[2020-06-14] MEDS: PANTOPRAZOLE SODIUM TAB 40 MG PO SCH (05:54)
--- NOTE | 2020-06-14 07:32 | RAD ---
EXAM: Chest Radiography COMPARISON: Chest radiograph June 13, 2020 INDICATION: MAIN covid FINDINGS: A single AP view of the chest demonstrates a normal cardiomediastinal silhouette. Stable left chest tube with stable small left apical pneumothorax. Stable multifocal bilateral consolidations. Osseous structures are intact. IMPRESSION: Stable chest. Electronically signed by: Francis Tejada MD 06/14/2020 7:30 AM OIL SEAL ASSEMBLER
[2020-06-14] MEDS: predniSONE 20 MG TAB PO SCH (09:22)
[2020-06-14] MEDS: ENOXAPARIN SODIUM 100 MG/ML SYG SUBCU SCH ×2 (09:22→20:43)
[2020-06-14] MEDS: BIFIDOBACTERIUM INFANTIS 4 MG CAP PO SCH ×2 (09:22→20:43)
[2020-06-14] MEDS: guaiFENesin ER TAB 600 MG TAB PO SCH ×2 (09:22→20:45)
[2020-06-14] MEDS: CITALOPRAM HBR 20 MG TAB PO SCH (09:22)
[2020-06-14] MEDS: SODIUM CHLORIDE 0.9% (FLUSH) 10 ML SYG IV SCH ×2 (09:23→20:45)
[2020-06-14] MEDS: HYDROcodone 7.5MG/APAP 325MG 1 EA TAB PO PRN ×3 (09:23→23:49)
--- NOTE | 2020-06-14 10:20 | PN ---
SUPERVISING PHYSICIAN: Edson Renee MD DATE: 06/13/20 SUBJECTIVE: The patient is sitting up in bed. He had just walked in the hallways earlier. He had actually walked 108 feet on 4 liters nasal cannula. He did drop briefly to 88% but quickly improved to 91 to 94% on 4 liters nasal cannula. He has no complaints of shortness of breath, said he is very weak but feels much better. OBJECTIVE: VITAL SIGNS: Temperature 96.8, heart rate 75, blood pressure 116/66, respiratory rate 19. O2 saturation 93 to 98% at rest on four liters nasal cannula. RESPIRATORY: Somewhat diminished but otherwise clear to auscultation. CARDIAC: Regular rate and rhythm. NEUROLOGIC: Awake, alert and oriented times three. LABORATORY: There are no labs or films to report today. ASSESSMENT: 1. Acute hypoxemic respiratory failure. 2. COVID-19 pneumonitis. 3. Left sided pneumothorax, requiring chest tube. 4. Bilateral pulmonary emboli. 5. Pneumomediastinum, resolved on chest x-ray. 6. History of tobacco abuse in a previous smoker. 7. Anxiety. PLAN: We will continue present supportive care including continuing to wean him off oxygen. Dr. Galvez is managing the patient's chest tubes. I have ordered a chest x-ray and lab for in the morning and will and treat as needed. [facility][id number] [facility]
--- NOTE | 2020-06-14 19:47 | PN ---
SUPERVISING PHYSICIAN: Edson Renee M.D. DATE: 06/14/20 SUBJECTIVE: The patient is sitting up in bed. He has no complaints. He has been walking in the hallway again. His oxygen has been maintaining at 4 liters. He does desaturate when he walks, but he rebound easily at rest. Denies chest pain, nausea or vomiting. OBJECTIVE: VITAL SIGNS: Temperature 98, heart rate 95, blood pressure 116/75, respiratory rate 21, O2 saturations 93 to 96% on 4 liters nasal cannula. RESPIRATORY: Diminished at the bases, more so on that left side. He does have a chest tube in place. The chest tube is presently to water seal. CARDIAC: Regular rate and rhythm. NEUROLOGIC: He is awake, alert and oriented times three. LABORATORY: WBCs are 15,800 with hemoglobin 10.4, hematocrit 31. D-dimer is 3,280. Sodium 134, potassium 3.8, chloride 96. Chest x-ray shows stable chest. All other labs and films have been reviewed via the EMR. ASSESSMENT: 1. Acute hypoxemic respiratory failure. 2. COVID-19 pneumonitis. 3. Left sided pneumothorax, requiring chest tube. 4. Bilateral pulmonary emboli. 5. Pneumomediastinum, resolved on chest x-ray. 6. History of tobacco abuse in a previous smoker. 7. Anxiety. PLAN: We will continue present supportive care. He will have labs and chest x- ray tomorrow. Dr. Corado is following the patient as far as his chest tube is concerned. Hopefully will continue to titrate off his oxygen as tolerated. [facility][id number] [facility]
[2020-06-15] MEDS: LEVALBUTEROL NEBS 1.25 MG/3 ML VIAL NEB SCH ×4 (00:02→23:50)
[2020-06-15] MEDS: PANTOPRAZOLE SODIUM TAB 40 MG PO SCH (05:53)
--- NOTE | 2020-06-15 08:34 | RAD ---
TECHNIQUE: Chest,1 View Chest radiograph, AP 1 view. HISTORY: MAIN ct; covid COMPARISON: Chest x-ray June 14, 2020. FINDINGS: Lungs/Pleura: Hypoaerated lungs accentuate the pulmonary markings and cardiac silhouette. Scattered patchy interstitial and airspace opacities in both lungs mostly at the periphery. Stable elevated right hemidiaphragm. No blunting of costophrenic angles are evident to suggest effusions. Previously seen is left pneumothorax is no longer evident. No appreciable right pneumothorax. Mediastinum, [place]: Aortic calcifications. No appreciable pneumomediastinum. Heart: Cardiac silhouette is stable compared to prior. Bones: No suspicious osseous lesions. Soft Tissues: Unremarkable. Other: Left chest tube is in the similar position compared to prior. IMPRESSION: * Previously reported left pneumothorax is no longer evident. No right pneumothorax. * Stable bilateral pneumonia. Electronically signed by: Jorge Guajardo 06/15/2020 8:32 AM TOOL PROGRAMMER
[2020-06-15] MEDS: BIFIDOBACTERIUM INFANTIS 4 MG CAP PO SCH ×2 (09:18→20:34)
[2020-06-15] MEDS: ENOXAPARIN SODIUM 100 MG/ML SYG SUBCU SCH ×2 (09:18→20:34)
[2020-06-15] MEDS: predniSONE 20 MG TAB PO SCH (09:18)
[2020-06-15] MEDS: CITALOPRAM HBR 20 MG TAB PO SCH (09:18)
[2020-06-15] MEDS: HYDROcodone 7.5MG/APAP 325MG 1 EA TAB PO PRN ×3 (09:18→20:33)
[2020-06-15] MEDS: guaiFENesin ER TAB 600 MG TAB PO SCH ×2 (09:18→20:34)
[2020-06-15] MEDS: IBUPROFEN 400 MG TAB PO PRN (09:19)
[2020-06-15] MEDS: SODIUM CHLORIDE 0.9% (FLUSH) 10 ML SYG IV SCH ×2 (10:22→20:34)
[2020-06-15] MEDS: LEVALBUTEROL NEBS 1.25 MG/3 ML VIAL NEB PRN (13:45)
[2020-06-15] MEDS: guaiFENesin W/CODEINE LIQ 10 ML UD PO PRN ×2 (16:04→20:33)
[2020-06-15] MEDS: IV SET AND CAP CHANGE INJ INJ SCH (17:23)
--- NOTE | 2020-06-15 17:30 | PN ---
SUPERVISING PHYSICIAN: Edson Renee M.D. DATE: 06/15/20 SUBJECTIVE: The patient seems to be doing pretty well this morning. He had his left sided chest tube removed without any complications. He is not having any significant shortness of breath. No coughing. He is doing well on 4 liters nasal cannula. He has been ambulating. He has had no nausea or vomiting. Just had some chest pain on palpation to the chest tube insertion site, otherwise without any complaints. OBJECTIVE: VITAL SIGNS: Temperature 97.8, pulse 79, blood pressure 127/68, respirations 20, satting 99% on 4 liters nasal cannula. GENERAL: The patient is resting comfortably on 4 liters nasal cannula, in no distress. CHEST: His chest tube has been removed on the left side. He is not showing any complications from that. Chest sounds are diminished but I do not hear any rales or rhonchi. ABDOMEN: Soft, non-tender. Positive bowel sounds. EXTREMITIES: No edema. NEUROLOGIC: He is alert and oriented times three. LABORATORY: White count is 15,700, hemoglobin 9.7, hematocrit 29.1, platelet count 327,000. Differential does show a slight left shift. D-dimer is down to 2990. Chemistries are showing normal electrolytes, creatinine 0.73, magnesium a little low at 1.7, otherwise within normal limits. RADIOLOGY: Chest x-ray this morning prior to have the chest tube removed shows previously reported left pneumothorax no longer evident. No right pneumothorax with stable bilateral pneumonia. The left chest tube in similar position compared to previous. ASSESSMENT: 1. Acute hypoxic respiratory failure due to COVID pneumonitis now on 4 liters nasal cannula. 2. COVID-19 pneumonitis with associated pneumonia. 3. Left sided pneumothorax, complications from #1 and #2 with associated chest tube placement. 4. Bilateral pulmonary emboli on Lovenox secondary to #2. 5. Pneumomediastinum, resolved. 6. History of chronic tobacco abuse. 7. Anxiety. PLAN: Will continue to follow the patient. Hopefully he will be able to discharge in the next 24 hours. His chest tube was removed and will continue to monitor that closely. X-ray is ordered for in the morning. Will go ahead and follow his CBC. The rest of his labs are pretty stable, but will monitor as needed. Again, hopefully be able to discharge him tomorrow. He is encouraged to ambulate and continue with good aggressive bronchial hygiene. Until we can titrate his oxygen either off or down and transition to outpatient management, will continue to monitor and treat as needed. #[id number] [facility]
--- NOTE | 2020-06-16 06:11 | RAD ---
EXAM: XR Chest, 1 View CLINICAL HISTORY: The patient is 44 years old and is Male; ct removal TECHNIQUE: Frontal view of the chest. COMPARISON: No relevant prior studies available. FINDINGS: Lungs: Diffuse interstitial and airspace opacities bilaterally, left greater than right. Left hemidiaphragm is obscured suggestive of left lower lobe consolidation or atelectasis. Pleural space: Blunting of the right costophrenic angle which may represent right pleural effusion. Left costophrenic angle is obscured; cannot exclude pleural effusion. No pneumothorax. Heart: Unremarkable. Mediastinum: Unremarkable. Bones/joints: Unremarkable. IMPRESSION: 1. Diffuse interstitial and airspace opacities bilaterally, left greater than right. 2. Left hemidiaphragm is obscured suggestive of left lower lobe consolidation or atelectasis. 3. Blunting of the right costophrenic angle which may represent right pleural effusion. 4. Left costophrenic angle is obscured; cannot exclude pleural effusion. Electronically signed by: Edson Guillory MD 06/16/2020 6:09 AM CONCRETE LAYER
[2020-06-16] MEDS: PANTOPRAZOLE SODIUM TAB 40 MG PO SCH (06:14)
[2020-06-16] MEDS: MAGNESIUM OXIDE 400 MG TAB PO SCH (08:31)
[2020-06-16] MEDS: BIFIDOBACTERIUM INFANTIS 4 MG CAP PO SCH ×2 (08:31→20:17)
[2020-06-16] MEDS: CITALOPRAM HBR 20 MG TAB PO SCH (08:31)
[2020-06-16] MEDS: guaiFENesin ER TAB 600 MG TAB PO SCH ×2 (08:31→20:17)
[2020-06-16] MEDS: ENOXAPARIN SODIUM 100 MG/ML SYG SUBCU SCH ×2 (08:31→20:17)
[2020-06-16] MEDS: predniSONE 20 MG TAB PO SCH (08:32)
[2020-06-16] MEDS: ACETAMINOPHEN 325 MG TAB PO PRN ×2 (08:32→22:29)
[2020-06-16] MEDS: SODIUM CHLORIDE 0.9% (FLUSH) 10 ML SYG IV SCH ×2 (08:55→20:17)
[2020-06-16] MEDS: LEVALBUTEROL NEBS 1.25 MG/3 ML VIAL NEB SCH ×2 (09:06→17:43)
--- NOTE | 2020-06-16 14:20 | PN ---
SUPERVISING PHYSICIAN: Kathy Cook MD DATE: 06/16/20 SUBJECTIVE: The patient got his chest tube out yesterday. He has had no complications overnight. He has been ambulating. He still has some shortness of breath with ambulation, but seems to be doing better. He has been afebrile. No nausea or vomiting. He is still a little bit anxious at times. We did discuss getting ready to go home within the next 24 to 48 hours, get assessment ready as well as long-term medications. OBJECTIVE: VITAL SIGNS: Temperature 98, pulse 100, blood pressure 124/75, respirations 20, saturating 92% to 94% on 3 liters nasal cannula at rest. GENERAL: The patient is resting comfortably. CHEST: His chest tube has been removed on the left side. He is not showing any complications from that. Chest sounds are diminished but I do not hear any rales or rhonchi. ABDOMEN: Soft, nontender. Positive bowel sounds. EXTREMITIES: No edema. NEUROLOGIC: He is alert and oriented times three. LABORATORY: White count is 18,900, hemoglobin stable at 9.9, hematocrit 29.7, platelet count 358,000. Coagulation studies show D-dimer 2990. Chemistries show sodium 132, blood sugar 165, creatinine 0.72. RADIOLOGY: Chest x-ray this morning per radiologic interpretation of single view chest showed diffuse interstitial airspace opacities bilaterally, left greater than right, with left hemidiaphragm obscured suggestive of left lower lobe consolidation or atelectasis and blunting of the right costophrenic angle, which may represent a right pleural effusion as well as left costophrenic angle obscured and cannot exclude a pleural effusion. ASSESSMENT: 1. Acute hypoxic respiratory failure due to COVID pneumonitis now on 4 liters nasal cannula. 2. COVID-19 pneumonitis with associated pneumonia. 3. Left sided pneumothorax, complications from #1 and #2 with associated chest tube placement. 4. Bilateral pulmonary emboli on Lovenox secondary to #2. 5. Pneumomediastinum, resolved. 6. History of chronic tobacco abuse. 7. Anxiety. PLAN: At this point, the plan is to hopefully discharge him tomorrow. We will continue to titrate his oxygen down. We are working to make arrangements for oxygen, which I believe is going to be arranged through a family friend. I did discuss his anticoagulation therapy with Dr. Cook. Given the fact that he has been on some type of anticoagulation since he has been in the hospital over 21 days and given he is negative for DVT, but has positive PE secondary to COVID, we are going to start him on Xarelto 20 mg daily which he will need to be on for at least 3 months. He will be given additional samples through [facility] at discharge. Again, hopefully, we will be able to discharge him tomorrow. We will monitor closely overnight. We will hold off on repeating lab studies as they have been fairly stable. He does remain on prednisone which I think is resulting in his mild leukocytosis. Otherwise, he seems to be doing well. Again, until the patient can transition to outpatient management, we will continue to monitor and treat as needed. #[id number] [facility]
[2020-06-16] MEDS: guaiFENesin W/CODEINE LIQ 10 ML UD PO PRN (22:31)
[2020-06-17] MEDS: PANTOPRAZOLE SODIUM TAB 40 MG PO SCH (05:46)
[2020-06-17] MEDS: CITALOPRAM HBR 20 MG TAB PO SCH (08:02)
[2020-06-17] MEDS: MAGNESIUM OXIDE 400 MG TAB PO SCH (08:02)
[2020-06-17] MEDS: guaiFENesin ER TAB 600 MG TAB PO SCH (08:02)
[2020-06-17] MEDS: ENOXAPARIN SODIUM 100 MG/ML SYG SUBCU SCH (08:02)
[2020-06-17] MEDS: BIFIDOBACTERIUM INFANTIS 4 MG CAP PO SCH (08:02)
[2020-06-17] MEDS: predniSONE 20 MG TAB PO SCH (08:02)
[2020-06-17] MEDS: SODIUM CHLORIDE 0.9% (FLUSH) 10 ML SYG IV SCH (08:05)
[2020-06-17] MEDS: LEVALBUTEROL NEBS 1.25 MG/3 ML VIAL NEB SCH ×2 (09:16)
[2020-06-17] MEDS: ALPRAZolam 0.5 MG TAB PO PRN (09:45)
[2020-06-17] MEDS: ACETAMINOPHEN 325 MG TAB PO PRN (09:45)
[2020-06-17] MEDS: guaiFENesin W/CODEINE LIQ 10 ML UD PO PRN (10:20)
[2020-06-17 10:37] VITALS: O2SAT 90
[2020-06-17 12:04] VITALS: BP 116/67; TEMP 98.3
--- NOTE | 2020-06-17 12:07 | DS ---
SUPERVISING PHYSICIAN: Kathy Cook MD ADMISSION DIAGNOSIS: 1. Sepsis related to COVID-19 pneumonitis with concerns for developing pneumonia. His admitting heart rate was 117, respiratory rate 24, O2 saturation 75%, and WBCs were 10,900. 2. History of supraventricular tachycardia. 3. History of tobacco abuse, quit smoking cigarettes 2 years ago. 4. Remote history of illicit drug use, mainly methamphetamines. DISCHARGE DIAGNOSIS: 1. COVID pneumonitis with associated hypoxia requiring home O2. 2. COVID pneumonia secondary to #1. 3. Left sided pneumothorax, complications from #1 and #2 requiring chest tube placement with no recurrence of pneumothorax with chest tube removed prior to discharge. 4. Bilateral pulmonary emboli, secondary to #1, discharged on Xarelto. 5. Pneumomediastinum while on noninvasive ventilation, resolved. 6. Chronic tobacco abuse. 7. Anxiety, discharged on antidepressant. REASON FOR HOSPITALIZATION: This is a 44-year-old male patient who presented to the Emergency Room for complaints of shortness of breath with fever and cough. He had been sick for about 7 to 10 days. He was actually seen in the Emergency Room about a week ago and diagnosed with COVID. He had been discharged to home at that time. His O2 saturation at that time was normal. Over the last week or so, his symptoms worsened. He has had temperature up to 103. He has also had cough that has been productive. His shortness of breath has worsened and is worse with activity and exertion. He quit smoking about 2 years ago and about 10 years ago, used meth for some time, but he has not used any illicit drugs since that time. His initial vital signs showed a temperature of 98.7, heart rate 117, blood pressure 133/84, respiratory rate 24, O2 saturation 75%. After oxygen was placed on the patient, his O2 saturation went up to 90% with 4 liters. Lab studies were done. WBCs were 10,900, hemoglobin 13.4, hematocrit 38.9. He had a left shift on differential. D-dimer was elevated 3,650. Electrolytes were within normal limits with the exception of calcium slightly low at 8.3, magnesium low at 1.7. Bilirubin 1.6, LD 344, CRP 34.1. Followup bilirubin was 1.2 with direct bilirubin of 0.4, indirect bilirubin of 0.8. Chest x-ray showed pulmonary infiltrates with imaging features typical of COVID pneumonia. CT of the chest showed 1) Extensive infiltrates and ground glass opacities throughout both lung conteh, typical of COVID-19 pneumonia. 2) No evidence of pulmonary embolism. He was admitted to the hospital in stable condition. LABORATORY: Please see previous labs. Review of final labs on discharge showed white count 18,100, hemoglobin 11.0, hematocrit 32.3, platelet count 415,000. He did have a left shift, but he was on continued prednisone and steroids during his hospitalization. His actual white count got up to a maximum high of 27,100. Coagulation studies showed D-dimer was down to 2990, but again he was positive for pulmonary emboli. He has had one blood gas while in the hospital. Please see that report for details. Final BMP on discharge showed normal electrolytes with sodium 135, crepitus 0.85. Calcium and magnesium were normal. Liver functions were showing normal levels prior to discharge. He had no elevated troponins while in the hospital. His C-reactive protein normalized from maximum of 34.1 on admission to less than 0.8 at discharge. MICROBIOLOGY: No actual microbiology specimens were submitted while he was in the hospital. RADIOLOGY: He had multiple exams including CTs of the chest which did reveal pulmonary emboli. Please see those repots. Last CTA was done on 06/05/20. Last chest x-ray prior to discharge on 06/16/20 post chest tube removal showed diffuse interstitial airspace opacities, left greater than right. Please see all those reports for details. HOSPITAL COURSE: Mr. Pimentel was admitted for COVID pneumonitis and associated pneumonia. He had a length hospital stay that included noninvasive ventilation with BiPAP, development of a small pneumomediastinum which resolved. He ultimately developed a left sided pneumothorax and required chest tube placement, which was placed by Dr. Galvez. He slowly improved. He did finally titrate down on his oxygen needs to 3 liters nasal cannula. Chest tube was removed and he had no complications. He had physical therapy while he was in the hospital. He was also started on some Celexa due to some mild depression. He was on antibiotic coverage including Merrem and Ancef while in the hospital and remdesivir. He remained on dexamethasone, was then transitioned to Solu- Medrol and then transitioned to oral prednisone prior to discharge. He was also anticoagulated with Eliquis, hepatitis subcutaneously and then ultimately put back on Lovenox, weight-based, 1 mg per kg, and continued until discharge, at which time he was started on Xarelto. Again, he did show good improvement over the course and was stable on day of discharge to continue with outpatient management. Vital signs at discharge showed he was afebrile at 97.8, pulse 71, blood pressure 129/88, respirations 18, saturation 95% on 3 liters nasal cannula at rest. PLAN: Mr. Pimentel was discharged on 06/17/20. Appointments were made for him to followup with Dr. Galvez in regards to the chest tube to have stitches removed with that appointment being on 06/23/20. He was to call for a time. He was also to see Dr. Nathan on 06/24/20 at 10 AM for followup appointment as well. Arrangements were made through [facility] for oxygen and he was to wear as directed with nasal cannula at home. He was to increase his activity as tolerated and given instructions to return to the Emergency Room or call Dr. Nathan's office or Dr. Galvez's for any further questions or other concerning symptoms. He was continued on antibiotics at discharge due to the fact that he had a complicated course as well as chest tube prior to discharge being removed 2 days and advanced pneumonia with continuation of antibiotics at discharge to include Augmentin for a total of 7 days course of treatment. He was also continued on prednisone tapering dose over 12 days due to the fact that he had been on some form of steroid for the entire duration of his hospitalization. He was continued on anticoagulation with Xarelto with samples provided by the clinic. He was given albuterol inhaler and cough medicine including Tessalon Perles. Prescriptions written on discharge included: 1. Amoxicillin 875 mg twice daily for 7 days, #14, no refills. 2. Celexa 20 mg daily, #30, no refills. 3. Mucinex 600 mg twice daily for 7 days while on antibiotics. 4. Prednisone taper 10 mg tablets over 12 days, #30, no refills. 5. Tessalon Perles 200 mg 3 times a day as needed for cough, #30, no refills. 6. Albuterol inhaler 2 puffs q.4h. as needed, no refills. 7. Xarelto 20 mg daily, #90, samples provided by clinic and to continue by Dr. Nathan. CONDITION ON DISCHARGE: Stable and improved. DISPOSITION: The patient was discharged home. #[id number] [facility]
== END 2020-06-17 10:45 | disposition home or self-care (01) | DRG 871 ==
LOC: ER 08:30 → MS 12:54 → OBSVTOIN 12:54
PROVIDERS: ADMIT Nurse Practitioner Acute Care; ATTEND Nurse Practitioner Family
PROC: B32T1ZZ Computerized Tomography (CT Scan) of Left Pulmonary Artery using Low Osmolar Contrast (ICD-10-PCS; 2020-05-25)
PROC: B32S1ZZ Computerized Tomography (CT Scan) of Right Pulmonary Artery using Low Osmolar Contrast (ICD-10-PCS; 2020-05-25)
PROC: 5A0955A Assistance with Respiratory Ventilation, Greater than 96 Consecutive Hours, High Flow/Velocity Cannula (ICD-10-PCS; 2020-05-25)
PROC: XW033E5 Introduction of Remdesivir Anti-infective into Peripheral Vein, Percutaneous Approach, New Technology Group 5 (ICD-10-PCS; 2020-05-26)
PROC: B32T1ZZ Computerized Tomography (CT Scan) of Left Pulmonary Artery using Low Osmolar Contrast (ICD-10-PCS; principal; 2020-06-05)
PROC: B32S1ZZ Computerized Tomography (CT Scan) of Right Pulmonary Artery using Low Osmolar Contrast (ICD-10-PCS; 2020-06-05)
PROC: 0W9B30Z Drainage of Left Pleural Cavity with Drainage Device, Percutaneous Approach (ICD-10-PCS; 2020-06-10)
DX: A41.89 Other specified sepsis (principal); U07.1 COVID-19; J12.82 Pneumonia due to coronavirus disease 2019; I26.99 Other pulmonary embolism without acute cor pulmonale; J93.83 Other pneumothorax; J96.01 Acute respiratory failure with hypoxia; F41.0 Panic disorder [episodic paroxysmal anxiety]; Z87.891 Personal history of nicotine dependence; J98.2 Interstitial emphysema; E83.42 Hypomagnesemia; F32.9 Major depressive disorder, single episode, unspecified; Z79.899 Other long term (current) drug therapy

== ENCOUNTER → 2020-07-07 | Outpatient (CLI) | payer SELFPAY ==
--- NOTE | 2020-07-07 11:38 | RAD ---
EXAM DESCRIPTION: Chest,2 Views CLINICAL HISTORY: PNEUMONIA DUE TO CARONAVIRUS DISEASE 2018 COMPARISON: Previous chest x-ray June 16, 2020 TECHNIQUE: PA/lateral FINDINGS: Heart is prominent with increased pulmonary vascularity. No pleural effusion or pneumothorax. Infiltrative changes are seen in the periphery of both lungs. Patchy infiltrate in the left perihilar region. Slight blunting the costophrenic angles consistent with small pleural effusions or pleural scarring. Lateral view shows intact sternum and T-spine. Pneumonia appears improved compared to previous study especially on the left. IMPRESSION: Prominent heart with mildly increased vascularity. Bilateral pulmonary infiltrates consistent with pneumonia, improved. Electronically signed by: Beto Carreno MD 07/07/2020 11:37 AM ENGRAVER TIRE [employer]OLD
== END ==
LOC: LAB.O 08:52
PROVIDERS: ATTEND Family Medicine
DX: U07.1 COVID-19 (principal); J12.82 Pneumonia due to coronavirus disease 2019; I51.7 Cardiomegaly